=== PATIENT | female | born 1965 | race Caucasian/White ===

== ENCOUNTER 2020-07-10 15:32 | Outpatient (REF) | payer BC, SELFPAY ==
--- NOTE | 2020-07-10 15:39 | MM_ITS ---
EXAMINATION: MM SCREENING DIGITAL MAMMOGRAPHY, BILATERAL CLINICAL INFORMATION: Screening. Asymptomatic. The lifetime risk of breast cancer based on the Tyrer-Cuzick Model is 16%. COMPARISON: Mammography: 06/29/2018, 12/12/2017, 05/30/2017 TECHNIQUE: Digital mammography is performed in craniocaudal and mediolateral oblique views along with additional implant-displaced craniocaudal and implant-displaced mediolateral oblique views. Computer-aided detection (CAD) is performed for this exam. FINDINGS: There are scattered areas of fibroglandular density (ACR BI-RADS breast composition Category b). There are no significant masses, abnormal calcifications, or other abnormalities. The axilla and skin contours are unremarkable. Parenchymal pattern is similar to prior exams. There are a few punctate round calcifications mid 12:00 right breast stable from prior studies. MM/MM tomosynthesis screening BI IMPRESSION: No mammographic evidence of malignancy. ASSESSMENT: BI-RADS 2: Benign RECOMMENDATION: Routine annual mammography screening. This patient's information was entered into a reminder system with a target due date for their next mammogram.
--- NOTE | 2020-07-10 15:39 | MM_ITS ---
EXAMINATION: MM SCREENING DIGITAL MAMMOGRAPHY, BILATERAL CLINICAL INFORMATION: Screening. Asymptomatic. The lifetime risk of breast cancer based on the Tyrer-Cuzick Model is 16%. COMPARISON: Mammography: 06/29/2018, 12/12/2017, 05/30/2017 TECHNIQUE: Digital mammography is performed in craniocaudal and mediolateral oblique views along with additional implant-displaced craniocaudal and implant-displaced mediolateral oblique views. Computer-aided detection (CAD) is performed for this exam. FINDINGS: There are scattered areas of fibroglandular density (ACR BI-RADS breast composition Category b). There are no significant masses, abnormal calcifications, or other abnormalities. The axilla and skin contours are unremarkable. Parenchymal pattern is similar to prior exams. There are a few punctate round calcifications mid 12:00 right breast stable from prior studies. IMPRESSION: No mammographic evidence of malignancy. ASSESSMENT: BI-RADS 2: Benign RECOMMENDATION: Routine annual mammography screening. This patient's information was entered into a reminder system with a target due date for their next mammogram.
== END 2020-07-10 15:33 | disposition home or self-care (01) ==
LOC: HO.MAMMO 15:32
PROVIDERS: PCP Internal Medicine; Visit Provider Internal Medicine
DX: Z12.31 Encounter for screening mammogram for malignant neoplasm of breast (principal)
CPT/HCPCS: 77063; 77067

== ENCOUNTER 2021-02-15 16:23 | Outpatient (REF) | payer BC, SELFPAY ==
--- NOTE | ~2021-02-15 | XR_ITS ---
EXAMINATION: XR SINUSES CLINICAL INFORMATION: Chronic sinusitis COMPARISON: None TECHNIQUE: 4 FINDINGS: The paranasal sinuses are well aerated and clear. No opacification or air-fluid level to suggest sinusitis is seen. Bony structures are unremarkable. XR/XR sinus <3V IMPRESSION: Unremarkable examination.
== END 2021-02-15 16:24 | disposition home or self-care (01) ==
LOC: HO.XRAY 16:23
PROVIDERS: PCP Internal Medicine; Visit Provider Internal Medicine
DX: J32.9 Chronic sinusitis, unspecified (principal)
CPT/HCPCS: 70210

== ENCOUNTER → 2021-05-24 08:48 | Outpatient (BNVA) | payer BC, SELFPAY | PROVIDERS: PCP Internal Medicine; Visit Provider Nurse Practitioner ==

== ENCOUNTER 2021-05-28 10:59 | Outpatient (REF) | payer BC, SELFPAY ==
[2021-05-28 11:55] LABS: MANUAL DIFF FLAG NO
[2021-05-28 12:02] LABS: Basophils Percent Auto 0.6 % (0-2); Eosinophils Absolute Auto 0.2 X10*3/uL (0.0-0.4); Eosinophils Percent Auto 3.1 % (0-4); Hematocrit 37.4 % (37-47); Hemoglobin 12.5 g/dl (12.0-16.0); Imm Gran Abs Auto 0.01 X10*3/uL (0.00-0.03); Imm Gran Pct Auto 0.2 % (0.0-0.4); Lymphocytes Absolute Auto 1.8 X10*3/uL (1.2-4.9); Lymphocytes Percent Auto 37.5 % (20-40); Mean Corpuscular HGB Conc 33.4 g/dl (31.0-35.0); Mean Corpuscular Hemoglobin 29.3 pg (27.0-33.0); Mean Corpuscular Volume 87.6 fL (80-98); Monocytes Absolute Auto 0.4 X10*3/uL (0.1-1.2); Monocytes Percent Auto 7.4 % (2-11); Neutrophils Absolute Auto 2.5 X10*3/uL (2.0-8.3); Neutrophils Percent Auto 51.2 % (45-73); Platelet Count 222 X10*3/uL (160-400); Red Blood Count 4.27 X10*6/uL (4.20-5.50); Red Cell Distribution Width 12.2 % (11.0-16.0); White Blood Count 4.9 X10*3/uL (4.8-10.8)
[2021-05-28 12:23] LABS: Alanine Aminotransferase 13 U/L (0-31); Albumin Level 4.2 g/dL (3.5-5.0); Alkaline Phosphatase 88 U/L (39-117); Anion Gap 11 (12-20); Aspartate Amino Transferase 20 U/L (5-31); Bilirubin Total 0.5 mg/dL (0.0-1.0); Blood Urea Nitrogen 8 mg/dL (9-16); Calcium 9.4 mg/dL (8.4-10.2); Carbon Dioxide 29 mmol/L (22-29); Chloride 104 mmol/L (96-108); Cholesterol 220 mg/dL; Estimated Glomerular Filt Rate > 60; Glucose Random 94 mg/dL (60-115); HDL Cholesterol 49 mg/dL; LDL Cholesterol Calculated 158 mg/dl; Potassium 4.3 mmol/L (3.3-5.1); Sodium 140 mmol/L (135-145); Total Protein 7.3 g/dL (6.5-8.0); Triglycerides 68 mg/dL
[2021-05-28 12:30] LABS: Alanine Aminotransferase 11 U/L (0-31); Albumin Level 4.2 g/dL (3.5-5.0); Alkaline Phosphatase 88 U/L (39-117); Aspartate Amino Transferase 20 U/L (5-31); Bilirubin Direct 0.2 mg/dL (0.0-0.5); Bilirubin Total 0.5 mg/dL (0.0-1.0); Total Protein 7.3 g/dL (6.5-8.0)
[2021-05-28 12:43] LABS: Free T4 (Free Thyroxine) 0.92 ng/dL (0.71-1.85); Vitamin D 25-OH Total 22.8 ng/mL (>30)
[2021-05-28 12:49] LABS: Thyroid Stimulating Hormone 1.96 uIU/mL (0.32-4.0)
[2021-05-28 13:02] LABS: Folate 13.3 ng/mL (> or = 4.0); Vitamin B12 241 pg/mL (200-900)
== END 2021-05-28 11:00 | disposition home or self-care (01) ==
LOC: HO.LAB 10:59
PROVIDERS: Absent Provider Dermatology; PCP Internal Medicine; Referring Provider Internal Medicine; Visit Provider Nurse Practitioner
DX: L40.0 Psoriasis vulgaris (principal); D22.5 Melanocytic nevi of trunk; L81.4 Other melanin hyperpigmentation; L81.5 Leukoderma, not elsewhere classified; E78.00 Pure hypercholesterolemia, unspecified; R03.0 Elevated blood-pressure reading, without diagnosis of hypertension; L40.9 Psoriasis, unspecified; D12.6 Benign neoplasm of colon, unspecified; Z83.71 Family history of colonic polyps
CPT/HCPCS: 36415; 80053; 80061; 80076; 82248; 82306; 82607; 82746; 84439; 84443; 85025

== ENCOUNTER 2021-07-06 06:26 | Day surgery (SDC) | payer BC, SELFPAY ==
[2021-07-06] MEDS: Lactated Ringers 1,000 ML 100 ML IVCONT (06:50)
[2021-07-06 06:52] VITALS: BP 119/54; PULSE 75; RESP 16; TEMP 36.3; O2SAT 98; BMI 22.2
--- NOTE | 2021-07-06 07:18 | MHC.SHP ---
Pre-Procedural Eval Section A Date of Service: 07/06/21 The patient is an INPATIENT: No The History & Physical has been completed within 30 days and I have reviewed it.: No Section B Chief Complaint: Colon cancer screening, benign neoplasm of colon Details of Present Illness: Colon cancer screening, history of colon polyp Relevant Family History (Specify if Yes): Yes Relevant Social History: None Present Medications: see Short Stay Collaborative assessment Medical History: Significant History (Hypercholesterolemia Psoriasis) History of Previous Operations: Relevant previous surgery/procedure and date(s) (History of colonoscopy) Allergies: Allergies Allergy/AdvReac Type Severity Reaction Status Date / Time No Known Allergies Allergy Verified 07/02/21 15:27 [No Known Allergies*] Review of Systems Sugical H&P ROS: Negative: Constitution, Cardiovascular, Respiratory and Gastrointestinal Exam Surgical H&P Exam: Normal: Heart, Normal: Lungs, Normal: Extremities and Normal: Abdomen Plan Diagnosis/Plan: Unchanged I have reviewed the history and physical and performed a pertinent physical examination on my patient. No changes have occurred unless specified.
--- NOTE | 2021-07-06 07:21 | P.BOP_ITS ---
Brief Operative Note Date of Service: 07/06/21 Pre-op diagnosis: Colon cancer screening, Family history of colon cancer (Paternal Uncle in his 30's - had a colostomy) Family history of colon polyps (mom) Post-op diagnosis: other (Colon polyp, diverticulosis, hemorrhoids) Procedure: COLONOSCOPY TILL CECUM WITH BIOPSIES Consent: Indications for the procedure and potential complications of bleeding, perforation, reaction to medications and missed diagnosis were discussed with the patient and informed consent was obtained. Instrument: Olympus CF HQ 190 L variable stiffness adult colonoscope Monitoring: Vital signs and clinical assessment, intermittent blood pressure monitoring, continuous EKG monitoring, Pulse oximetry and Carbon Dioxide monitoring were done throughout the procedure. Colon withdrawl time was 12 minutes. Procedure: The patient was placed in the left lateral decubitis position and pre-procedure medications were administered. After a digital rectal examination of the ano-rectum, the video colonoscope was inserted into the rectum and advanced through the colon to the cecum. The colonoscope was slowly withdrawn in a retrograde panoramic fashion and the colon mucosa was carefully examined including a retroflexed view of the rectum. Findings and interventions are described below. Procedure Difficulty: Colon was long and tortuous and there was recurrent loop formation - no maneuvers were required Findings: Terminal Ileum: Not evaluated Cecum: Normal Ascending Colon: Normal Transverse Colon: Normal Descending Colon: Normal Sigmoid Colon: Moderate diverticulosis Rectum: A 3-4 mm diminutive appearing polyp removed with the cold biopsy Ano-rectum: Moderate internal hemorrhoids Colon preparation: Excellent Impression and Post Procedure Diagnosis: Colonoscopy Findings: One small polyp removed Moderate diverticulosis seen in the sigmoid colon Small hemorrhoids on retroflexed exam. Plan: Await pathology results Patient has an appointment on 07/20/21 in the GI Clinic with Teresa Presley NP. Repeat Colonoscopy interval based on path results - in 5 years if polyps are adenomatous and due to a hx of colon polyps. Above findings were reviewed with the patient and colon polyps and diverticulosis handouts were given in the discharge area Surgeon: Remi Cosby MD Anesthesia: MAC (Lisa Mullins CRNA) Was an Java Integration Developer used for this Procedure?: Yes Java Integration Developer: Elizabeth Brumfield Estimated blood loss (mL): 0 Pathology: other (A. rectal polyp) Condition: stable Disposition: PACU
--- NOTE | 2021-07-06 07:36 | HO.ANESPROP2 ---
HPI - Anesthesia Eval Consult details Narrative: 55 yo female patient for colonoscopy PMF Active Problems Active Problems: All Active Problems (Updated 07/02/21 @ 15:27 by Radha Davis RN) Sinusitis (Acute) Blood pressure elevated without history of HTN (Acute) Family history of polyps in the colon (Acute) Tubular adenoma of colon (Acute) Candidiasis of mouth (Acute) Psoriasis (Acute) Hypercholesterolemia (Acute) Past Medical History Medical History Arthritis Basal cell carcinoma (BCC) Candidiasis of mouth Hypercholesterolemia Mild heartburn Psoriasis Family History Family History Father Diabetes Hypertension CVD (cardiovascular disease) Mother CVD (cardiovascular disease) Hypertension Sister Melanoma Paternal Aunt Breast cancer Maternal Grandfather Bone cancer Paternal Uncle Melanoma Colon cancer Family history of problems with anesthesia: No Surgical History Surgical History H/O colonoscopy History of surgery History of Problems with Anesthesia: No Social History Social History (Updated 06/06/21 @ 15:18 by Yamilka Leon CMA) Housing: House Alcohol intake: never Patient Tobacco Use Status: Never used Tobacco e-Cigarette/Vaping Use: Never Used Second Hand Smoke Exposure: No Use of substances other than those prescribed or required for medical reasons: No Are you DNR?: No Advance Directives: No Advance Directives Information Provided: Yes Patient : No service: No Current occupational status: employed Meds Allergies Allergy/AdvReac Type Severity Reaction Status Date / Time No Known Allergies Allergy Verified 07/02/21 15:27 [No Known Allergies*] Home Medications Medication Instructions Recorded Confirmed Last Taken Type secukinumab 150 mg/mL subcutaneous mg SUBCUT Q4W 12/01/20 06/06/21 Unknown History pen injector clobetasol 0.05 % topical ointment 1 appl TOPICAL BEDTIME 12/25/20 07/02/21 Unknown History Exam Exam Date and Time: July 06, 2021 0736 Height,Weight and Vital Signs: Height 5 ft 6.5 in Weight 63.503 kg Last Vital Signs Temp 97.4 F 07/06/21 06:52 Pulse 75 07/06/21 06:52 Resp 16 07/06/21 06:52 BP 119/54 L 10/01/21 06:52 Pulse Ox 98 07/06/21 06:52 Airway Mallampati Class: I TM Dist: >3cm Neck ROM: Full Loose/Missing/Broken Teeth: No Heart: RRR Lungs: CTAB Assessment and Plan Assessment Anesthesia Assessment: Anesthesia Plan Discussed and Chart Reviewed Final Anesthetic Review Family History of Problems with Anesthesia: No History of Problems with Anesthesia: No NPO: Yes ASA Class: II Final Preanesthetic Review: No Changes in Pt Med Stat, Meds/Allgs Chart Reviewed, Consent Obtained/Reviewed and Anes Risks/Benef Reviewed Patient Risk: Low Procedure Risk: Low Assessment/Block/Sedation in SS: Assess/Block/Sedation-SS Anesthetic Plan Anesthetic Plan: MAC: Disposition: Standard PACU
--- NOTE | 2021-07-06 07:40 | P.OP_ITS ---
Operative Note Operative Note Date of Service: 07/06/21 Narrative: Pre-op diagnosis:?Colon cancer screening, Family history of colon cancer (Paternal Uncle in his 30's - had a colostomy) Family history of colon polyps (mom) Post-op diagnosis:?other (Colon polyp, diverticulosis, hemorrhoids) Procedure:? COLONOSCOPY TILL CECUM WITH BIOPSIES Consent: Indications for the procedure and potential complications of bleeding, perforation, reaction to medications and missed diagnosis were discussed with the patient and informed consent was obtained. Instrument: Olympus CF HQ 190 L variable stiffness adult colonoscope Monitoring: Vital signs and clinical assessment, intermittent blood pressure monitoring, continuous EKG monitoring, Pulse oximetry and Carbon Dioxide monitoring were done throughout the procedure. Colon withdrawl time was 12 minutes. Procedure: The patient was placed in the left lateral decubitis position and pre-procedure medications were administered. After a digital rectal examination of the ano-rectum, the video colonoscope was inserted into the rectum and advanced through the colon to the cecum. The colonoscope was slowly withdrawn in a retrograde panoramic fashion and the colon mucosa was carefully examined including a retroflexed view of the rectum. Findings and interventions are described below. Procedure Difficulty:? Colon was long and tortuous and there was recurrent loop formation - no maneuvers were required Findings: Terminal Ileum: Not evaluated Cecum:? Normal Ascending Colon:? Normal Transverse Colon:? Normal Descending Colon:? Normal Sigmoid Colon:? Moderate diverticulosis Rectum:? A 3-4 mm diminutive appearing polyp removed with the cold biopsy Ano-rectum:? Moderate internal hemorrhoids Colon preparation: Excellent ? Impression and Post Procedure Diagnosis: Colonoscopy Findings: One small polyp removed Moderate diverticulosis seen in the sigmoid colon Small hemorrhoids on retroflexed exam. Plan: Await pathology results Patient has an appointment on 07/20/21 in the GI Clinic with? Teresa Presley NP. Repeat Colonoscopy interval based on path results - in 5 years if polyps are adenomatous and due to a hx of colon polyps. Above findings were reviewed with the patient and colon polyps and diverticu losis handouts were given in the discharge area Surgeon:?Remi Cosby MD Anesthesia:?MAC (Lisa Mullins CRNA) Was an Security Solutions Engineer used for this Procedure?:?Yes Security Solutions Engineer:?Elizabeth Brumfield Estimated blood loss (mL):?0 Pathology:?other (A. rectal polyp) Condition:?stable Disposition:?PACU
[2021-07-06 08:22] VITALS: BP 90/50; PULSE 67; RESP 16; TEMP 36.3; O2SAT 99
[2021-07-06 08:37] VITALS: BP 106/62; PULSE 64; RESP 16; TEMP 36.3; O2SAT 98
== END 2021-07-06 09:37 | disposition home or self-care (01) ==
PROVIDERS: PCP Internal Medicine; Visit Provider Internal Medicine Gastroenterology
PROC: 0DJD8ZZ Inspection of Lower Intestinal Tract, Via Natural or Artificial Opening Endoscopic (ICD-10-PCS; CPT 45378; principal; 2021-07-06 07:30)
DX: Z12.11 Encounter for screening for malignant neoplasm of colon (principal); Z86.010 Personal history of colon polyps; Z83.71 Family history of colonic polyps; K62.1 Rectal polyp; K57.30 Diverticulosis of large intestine without perforation or abscess without bleeding; K64.8 Other hemorrhoids; L40.9 Psoriasis, unspecified; E78.00 Pure hypercholesterolemia, unspecified; Z79.899 Other long term (current) drug therapy
CPT/HCPCS: 45380; 88305

== ENCOUNTER → 2021-07-20 09:03 | Outpatient (BNVA) | payer BC, SELFPAY | PROVIDERS: PCP Internal Medicine; Referring Provider Internal Medicine; Visit Provider Nurse Practitioner ==

== ENCOUNTER 2021-08-07 14:48 | Outpatient (REF) | payer BC, SELFPAY ==
[2021-08-09 19:31] LABS: TS Negative Control Passed; TS Panel A 0; TS Panel B 0; TS Positive Control Passed; TSpotTB Negative (Negative)
== END 2021-08-07 14:49 | disposition home or self-care (01) ==
LOC: HO.LAB 14:48
PROVIDERS: PCP Internal Medicine; Visit Provider Dermatology
DX: Z11.1 Encounter for screening for respiratory tuberculosis (principal); D22.5 Melanocytic nevi of trunk; L81.4 Other melanin hyperpigmentation; L81.5 Leukoderma, not elsewhere classified; L40.0 Psoriasis vulgaris
CPT/HCPCS: 36415; 86481

== ENCOUNTER 2021-10-01 11:34 | Outpatient (REF) | payer BC, SELFPAY | END 2021-10-01 11:35 | disposition home or self-care (01) | LOC: HO.LAB 11:34 | PROVIDERS: Visit Provider Internal Medicine | DX: Z20.822 Contact with and (suspected) exposure to COVID-19 (principal) | CPT/HCPCS: 36415; 87635; C9803; U0003; U0005 ==

== ENCOUNTER 2021-12-20 16:07 | Outpatient (REF) | payer BC, SELFPAY ==
--- NOTE | ~2021-12-20 | MM_ITS ---
EXAMINATION: MM SCREENING DIGITAL BREAST TOMOSYNTHESIS, BILATERAL CLINICAL INFORMATION: Screening. Asymptomatic. The lifetime risk of breast cancer based on the Tyrer-Cuzick Model is 15%. COMPARISON: Mammography: 07/10/2020, 07/05/2019, 06/29/2018 TECHNIQUE: Digital breast tomosynthesis is performed in both the craniocaudal and mediolateral oblique views along with computer-aided detection (CAD). Synthesized 2D images are generated from the tomosynthesis. FINDINGS: There are scattered areas of fibroglandular density (ACR BI-RADS breast composition Category b). There are no significant masses, abnormal calcifications, or other abnormalities. Parenchymal pattern is similar to prior studies. There is no developing density or architectural abnormality. The axilla and skin contours are unremarkable. No significant changes. MM/MM tomosynthesis screening BI IMPRESSION: No mammographic evidence of malignancy. ASSESSMENT: BI-RADS 1: Negative RECOMMENDATION: Routine annual mammography screening. This patient's information was entered into a reminder system with a target due date for their next mammogram.
== END 2021-12-20 16:08 | disposition home or self-care (01) ==
LOC: HO.MAMMO 16:07
PROVIDERS: Visit Provider Internal Medicine
DX: Z12.31 Encounter for screening mammogram for malignant neoplasm of breast (principal)
CPT/HCPCS: 77063; 77067

== ENCOUNTER 2022-05-24 08:23 | Outpatient (REF) | payer BC, SELFPAY ==
[2022-05-24 08:48] LABS: MANUAL DIFF FLAG NO
[2022-05-24 10:02] LABS: Alanine Aminotransferase < 6 U/L (0-31); Alkaline Phosphatase 79 U/L (39-117); Anion Gap 14 (12-20); Aspartate Amino Transferase 17 U/L (5-31); Bilirubin Total 0.5 mg/dL (0.0-1.0); Blood Urea Nitrogen 11 mg/dL (9-16); Calcium 9.4 mg/dL (8.4-10.2); Carbon Dioxide 27 mmol/L (22-29); Chloride 104 mmol/L (96-108); Cholesterol 248 mg/dL; Estimated Glomerular Filt Rate > 60; Glucose Random 96 mg/dL (60-115); HDL Cholesterol 57 mg/dL; LDL Cholesterol Calculated 179 mg/dl; Potassium 4.9 mmol/L (3.3-5.1); Sodium 140 mmol/L (135-145); Total Protein 6.8 g/dL (6.5-8.0); Triglycerides 64 mg/dL
[2022-05-24 10:10] LABS: Free T4 (Free Thyroxine) 0.85 ng/dL (0.71-1.85); Thyroid Stimulating Hormone 1.76 uIU/mL (0.32-4.0); Vitamin D 25-OH Total 23.6 ng/mL (>30)
[2022-05-24 10:20] LABS: Folate 10.4 ng/mL (> or = 4.0); Vitamin B12 855 pg/mL (200-900)
[2022-05-24 11:09] LABS: Basophils Percent Auto 0.7 % (0-2); Eosinophils Absolute Auto 0.1 X10*3/uL (0.0-0.4); Eosinophils Percent Auto 2.1 % (0-4); Hemoglobin 12.1 g/dl (12.0-16.0); Imm Gran Abs Auto 0.01 X10*3/uL (0.00-0.03); Imm Gran Pct Auto 0.2 % (0.0-0.4); Lymphocytes Absolute Auto 1.6 X10*3/uL (1.2-4.9); Lymphocytes Percent Auto 36.4 % (20-40); Mean Corpuscular HGB Conc 33.6 g/dl (31.0-35.0); Mean Corpuscular Hemoglobin 29.5 pg (27.0-33.0); Mean Corpuscular Volume 87.8 fL (80.0-98.0); Mean Platelet Volume 10.5 fL (9.4-12.3); Monocytes Absolute Auto 0.5 X10*3/uL (0.1-1.2); Monocytes Percent Auto 10.5 % (2-11); Neutrophils Absolute Auto 2.2 x10*3/uL (2.0-8.3); Neutrophils Percent Auto 50.1 % (45-73); Platelet Count 210 X10*3/uL (160-400); Red Cell Distribution Width 12.2 % (11.0-16.0); White Blood Count 4.4 X10*3/uL (4.8-10.8)
== END 2022-05-24 08:24 | disposition home or self-care (01) ==
LOC: HO.LAB 08:23
PROVIDERS: PCP Internal Medicine; Visit Provider Internal Medicine
DX: E78.00 Pure hypercholesterolemia, unspecified (principal)
CPT/HCPCS: 36415; 80053; 80061; 82306; 82607; 82746; 84439; 84443; 85025

== ENCOUNTER 2023-03-27 10:14 | Outpatient (REF) | payer BC, SELFPAY ==
--- NOTE | ~2023-03-27 | MM_ITS ---
EXAMINATION: MM SCREENING DIGITAL BREAST TOMOSYNTHESIS, BILATERAL CLINICAL INFORMATION: Screening. Asymptomatic. The lifetime risk of breast cancer based on the Tyrer-Cuzick Model is 15%. COMPARISON: Mammography: 12/20/2021, 07/10/2020, 07/05/2019 TECHNIQUE: Digital breast tomosynthesis is performed in both the craniocaudal and mediolateral oblique views along with computer-aided detection (CAD). Synthesized 2D images are generated from the tomosynthesis. FINDINGS: There are scattered areas of fibroglandular density (ACR BI-RADS breast composition Category b). There are no significant masses, abnormal calcifications, or other abnormalities. No architectural abnormality or developing density or significant change from prior studies. The axilla and skin contours are unremarkable. MM/MM tomosynthesis screening BI IMPRESSION: No mammographic evidence of malignancy. ASSESSMENT: BI-RADS 1: Negative RECOMMENDATION: Routine annual mammography screening. This patient's information was entered into a reminder system with a target due date for their next mammogram.
== END 2023-03-27 10:15 | disposition home or self-care (01) ==
LOC: HO.MAMMO 10:14
PROVIDERS: Visit Provider Internal Medicine
DX: Z12.31 Encounter for screening mammogram for malignant neoplasm of breast (principal)
CPT/HCPCS: 77063; 77067

== ENCOUNTER 2023-05-27 09:49 | Outpatient (REF) | payer BC, SELFPAY ==
[2023-05-27 10:03] LABS: MANUAL DIFF FLAG NO
[2023-05-27 10:43] LABS: Basophils Percent Auto 0.5 % (0-2); Eosinophils Absolute Auto 0.1 X10*3/uL (0.0-0.4); Eosinophils Percent Auto 1.4 % (0-4); Hematocrit 38.4 % (37.0-47.0); Hemoglobin 12.5 g/dl (12.0-16.0); Imm Gran Abs Auto 0.02 X10*3/uL (0.00-0.03); Imm Gran Pct Auto 0.4 % (0.0-0.4); Lymphocytes Percent Auto 34.3 % (20-40); Mean Corpuscular HGB Conc 32.6 g/dl (31.0-35.0); Mean Corpuscular Volume 89.1 fL (80.0-98.0); Mean Platelet Volume 10.2 fL (9.4-12.3); Monocytes Absolute Auto 0.4 X10*3/uL (0.1-1.2); Neutrophils Absolute Auto 3.2 x10*3/uL (2.0-8.3); Neutrophils Percent Auto 56.4 % (45-73); Platelet Count 203 X10*3/uL (160-400); Red Blood Count 4.31 X10*6/uL (4.20-5.50); Red Cell Distribution Width 12.2 % (11.0-16.0); White Blood Count 5.7 X10*3/uL (4.8-10.8)
[2023-05-27 11:28] LABS: Alanine Aminotransferase 10 U/L (0-31); Albumin Level 4.1 g/dL (3.5-5.0); Alkaline Phosphatase 76 U/L (39-117); Anion Gap 11 (12-20); Aspartate Amino Transferase 19 U/L (5-31); Bilirubin Total 0.6 mg/dL (0.0-1.0); Blood Urea Nitrogen 9 mg/dL (9-16); Calcium 9.9 mg/dL (8.4-10.2); Carbon Dioxide 29 mmol/L (22-29); Chloride 105 mmol/L (96-108); Cholesterol 248 mg/dL (<200); Estimated Glomerular Filt Rate > 60; Glucose Random 93 mg/dL (60-115); HDL Cholesterol 60 mg/dL (>40); LDL Cholesterol Calculated 174 mg/dL (<100); Potassium 4.6 mmol/L (3.3-5.1); Sodium 140 mmol/L (135-145); Total Protein 7.4 g/dL (6.5-8.0); Triglycerides 71 mg/dL (<150)
[2023-05-27 11:47] LABS: Free T4 (Free Thyroxine) 0.88 ng/dL (0.71-1.85); Thyroid Stimulating Hormone 2.03 uIU/mL (0.32-4.0); Vitamin D 25-OH Total 22.4 ng/mL (>30)
[2023-05-27 11:52] LABS: Folate 10.4 ng/mL (> or = 4.0); Vitamin B12 989 pg/mL (200-900)
== END 2023-05-27 09:50 | disposition home or self-care (01) ==
LOC: HO.LAB 09:49
PROVIDERS: PCP Internal Medicine; Visit Provider Internal Medicine
DX: E78.00 Pure hypercholesterolemia, unspecified (principal); E55.9 Vitamin D deficiency, unspecified
CPT/HCPCS: 36415; 80053; 80061; 82306; 82607; 82746; 84439; 84443; 85025

== ENCOUNTER 2023-06-02 15:49 | Outpatient (AMB) | payer BC, SELFPAY ==
--- NOTE | 2023-06-02 16:01 | MHC.PC.OV ---
Vital Signs 06/02/23 16:02 Height 5 ft 5.5 in Weight 138 lb BMI 22.6 BP 110/68 Blood Pressure Location Lt brachial Position Sitting Pulse 68 Pulse Source Pulse Oximeter Pulse Oximetry (%) 97 Oxygen Delivery Method Room Air Intake Visit Reasons: 3 MONTH F/U Allergies No Known Allergies [No Known Allergies*] Allergy (Verified 06/02/23 16:02) Medication List - Last Reconciled 06/02/23 by Calvin Bennett MD calcipotriene 0.005% 1 appl topical BID clobetasol 0.05% 1 appl topical BEDTIME mecobalamin (vitamin B12) 1,000 mcg PO DAILY nystatin 5 mL PO TID 7 days risankizumab-rzaa (Skyrizi) mg subcut simvastatin 5 mg PO BEDTIME Tobacco use date assessed: 12/31/22 Dental Screening Dental Screen Date: 06/02/23 Did you have a dental visit in the last 12 months?: Yes Did you have a dental problem in the last 6 months where you did not have access to dental care?: No Was dental information given to patient?: Patient has dentist HPI 3 MONTH F/U HPI Details 57-year-old female with psoriasis hypercholesterolemia vitamin-D deficiency last seen in December 2022 for physical exam. Blood work was requested. Mammogram is up-to-date colonoscopy is up-to-date July 2021 patient is here for follow-up [facility] Medical History (Updated 12/31/22 @ 17:05 by Calvin Bennett MD) Arthritis Basal cell carcinoma (BCC) Candidiasis of mouth Family history of polyps in the colon Hypercholesterolemia Mild heartburn Psoriasis Surgical History H/O colonoscopy History of surgery Family History (Updated 06/02/23 @ 16:04 by Betzy Fraser CMA) Father Diabetes Hypertension CVD (cardiovascular disease) Mother CVD (cardiovascular disease) Hypertension Sister Melanoma Paternal Aunt Breast cancer Maternal Grandfather Bone cancer Paternal Uncle Melanoma Colon cancer Paternal Grandmother No problems noted. Paternal Grandfather CVD (cardiovascular disease) Social History Housing: House Alcohol intake: never Patient Tobacco Use Status: Never used Tobacco e-Cigarette/Vaping Use: Never Used Second Hand Smoke Exposure: No service: No Current occupational status: employed Cognitive needs: No Hearing needs: No Vision needs: No Questionnaire PHQ-9 Over the last 2 weeks, how often have you been bothered by any of the following problems? 1. Little interest or pleasure in doing things: not at all 2. Feeling down, depressed, or hopeless: not at all 3. Trouble falling or staying asleep, or sleeping too much: not at all 4. Feeling tired or having little energy: not at all 5. Poor appetite or overeating: not at all 6. Feeling bad about yourself - or that you are a failure or have let yourself or your family down: not at all 7. Trouble concentrating on things, such as reading the newspaper or watching television: not at all 8. Moving or speaking so slowly that other people could have noticed. Or the opposite - being so fidgety or restless that you have been moving around a lot more than usual: not at all 9. Thoughts that you would be better off or of hurting yourself in some way: not at all Total score: 0 Depression Screening Interpretation: Negative Source: Developed by Drs. Benigno See, Paige Prescott, Andera Roa and colleagues, with an educational pavan from [employer]. Thrive Questionnaire Date Thrive assessed: 12/31/22 AUDIT C Alcohol Use Questionnaire (AUDIT-C) 1. How often do you have a drink containing alcohol?: Never 2. How many drinks containing alcohol do you have on a typical day when you are drinking?: 1 or 2 (0) 3. How often do you have six or more drinks on one occasion?: Never Total Score: 0 FLORINDA-7 AMB Questionnaire FLORINDA-7 Date FLORINDA - 7 assessed: 12/31/22 Source: Developed by Drs. Benigno See, Paige Prescott, Andrea Roa and colleagues, with an educational pavan from [employer]. Physical exam (Primary Care) Vital Signs: Last Vital Signs Pulse 68 06/02/23 16:02 BP 110/68 06/02/23 16:02 Pulse Ox 97 06/02/23 16:02 Oxygen Delivery Method Room Air 06/02/23 16:02 BMI result Body Mass Index 22.6 Tobacco/Smoking Status: Tobacco use Status Tobacco use date assessed 12/31/22 06/02/23 16:07 Patient Tobacco Use Status Never used Tobacco 06/02/23 16:07 e-Cigarette/Vaping Use Never Used 06/02/23 16:07 PHQ-9: PHQ-9 Score PHQ-9: Total score 0 06/02/23 16:07 Depression Screening Interpretation: Negative Thrive Assessment: Date of Thrive Assessment Date Thrive assessed 12/31/22 06/02/23 16:07 Const General: alert; No acute distress Eyes Conjunctivae: conjunctivae normal Resp Auscultation: clear to auscultation bilaterally Cardio Rate: regular rate Rhythm: regular rhythm GI Inspection: Yes normal to inspection Extrem General: Yes normal to inspection and No edema Assessment and Plan Assessment & Plan (1) Psoriasis: Comment: Dr. Curry Code(s): L40.9 - Psoriasis, unspecified Plan: Patient follows up with Dermatology had a recent biopsy also. Was told benign (2) Hypercholesterolemia: Comment: January 2022 CT angiogram nonobstructive coronary artery disease Code(s): E78.00 - Pure hypercholesterolemia, unspecified Plan: Avoid fried foods, chicken skin, eggs, butter margarine, pastries and meat. Be it pork or beef they have a lot of cholesterol LDL goal of less than 130 and triglyceride of less than 150. Will start on simvastatin 5 mg once a day (3) Vitamin D deficiency: Code(s): E55.9 - Vitamin D deficiency, unspecified Plan: Vitamin-D 7497-8910 units once a day Orders: Orders Comprehensive Met. Panel 3 Months E78.00 - Pure hypercholesterolemia, unspecified Lipid Panel 3 Months E78.00 - Pure hypercholesterolemia, unspecified Medications: New simvastatin 5 mg PO BEDTIME 30 tabs 3RF E78.00 - Pure hypercholesterolemia, unspecified Refilled nystatin swish and swallow 5 mL PO TID 105 mL 1RF 7 days B37.0 - Candidal stomatitis Coding Level of Care Code Est Pt Level 4 (51775) Diagnoses Psoriasis L40.9 Hypercholesterolemia E78.00 Vitamin D deficiency E55.9 Additional Codes PHQ-9 - 21743 - PHQ-9 Billing: Y ([id number])
[2023-06-02 16:02] VITALS: BP 110/68; PULSE 68; O2SAT 97; BMI 22.6
== END 2023-06-02 16:39 | disposition home or self-care (01) ==
PROVIDERS: PCP Internal Medicine; Visit Provider Internal Medicine
DX: L40.9 Psoriasis, unspecified (principal); E78.00 Pure hypercholesterolemia, unspecified; E55.9 Vitamin D deficiency, unspecified
CPT/HCPCS: 99214

== ENCOUNTER 2023-09-04 15:46 | Outpatient (AMB) | payer BC, SELFPAY ==
[2023-09-04 15:49] VITALS: BP 132/90; PULSE 78; O2SAT 98; BMI 22.6
--- NOTE | 2023-09-04 15:49 | MHC.PC.OV ---
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 Patient's mammogram is up-to-date colonoscopy done July 2021. With the psoriasis patient follows up with the Dermatology placed on Skyrizi 150 mg subcutaneously every 12 weeks. L shoulder pain- after dog pulled deny bruise or swelling hard time elevating the arm and swinging to the back.. Patient knows to get the blood work done in the lab [facility] Medical History (Updated 09/04/23 @ 16:28 by Calvin Bennett MD) Basal cell carcinoma (BCC) Mild heartburn Arthritis Candidiasis of mouth Family history of polyps in the colon Hypercholesterolemia Psoriasis Surgical History H/O colonoscopy History of surgery Family History Father Diabetes Hypertension CVD (cardiovascular disease) Mother CVD (cardiovascular disease) Hypertension Sister Melanoma Paternal Aunt Breast cancer Maternal Grandfather Bone cancer Paternal Uncle Melanoma Colon cancer Paternal Grandmother No problems noted. Paternal Grandfather CVD (cardiovascular disease) Social History Housing: House Alcohol intake: never Patient Tobacco Use Status: Never used Tobacco e-Cigarette/Vaping Use: Never Used Second Hand Smoke Exposure: No service: No Current occupational status: employed Cognitive needs: No Hearing needs: No Vision needs: No Questionnaire Thrive Questionnaire Date Thrive assessed: 12/31/22 FLORINDA-7 AMB Questionnaire FLORINDA-7 Date FLORINDA - 7 assessed: 12/31/22 Source: Developed by Drs. Benigno See, Paige Prescott, Andrea Roa and colleagues, with an educational pavan from [employer]. Physical exam (Primary Care) Vital Signs: Last Vital Signs Pulse 78 09/04/23 15:49 BP 132/90 H 09/04/23 15:49 Pulse Ox 98 09/04/23 15:49 Oxygen Delivery Method Room Air 09/04/23 15:49 BMI result Body Mass Index 22.6 Tobacco/Smoking Status: Tobacco use Status Tobacco use date assessed 12/31/22 09/04/23 15:51 Patient Tobacco Use Status Never used Tobacco 09/04/23 15:51 e-Cigarette/Vaping Use Never Used 09/04/23 15:51 Thrive Assessment: Date of Thrive Assessment Date Thrive assessed 12/31/22 09/04/23 15:51 Const General: alert; No acute distress Eyes Conjunctivae: conjunctivae normal Resp Auscultation: clear to auscultation bilaterally Cardio Rate: regular rate Rhythm: regular rhythm GI Inspection: Yes normal to inspection Extrem Other: Patient has a hard time screening the arm to the back but can elevate up to 110 degrees there is pain in side but deny on posterior lateral and anterior. Assessment and Plan Assessment & Plan (1) Hypercholesterolemia: Comment: January 2022 CT angiogram nonobstructive coronary artery disease Code(s): E78.00 - Pure hypercholesterolemia, unspecified Plan: Avoid fried foods, chicken skin, eggs, butter margarine, pastries and meat. Be it pork or beef they have a lot of cholesterol LDL goal of less than 130 and triglyceride of less than 150. Has been placed on simvastatin 5 mg once a day. Reminded patient about the blood work (2) Vitamin D deficiency: Code(s): E55.9 - Vitamin D deficiency, unspecified Plan: Vitamin-D deficiency to take 9117-8474 units once a day (3) Psoriasis: Comment: Dr. Curry Code(s): L40.9 - Psoriasis, unspecified Plan: Patient follows up with Dermatology and on Skyrizi (4) Shoulder pain, left: Code(s): M25.512 - Pain in left shoulder Orders: Orders XR shoulder LT min 2V Today M25.512 - Pain in left shoulder Referrals Orthopedics Referral M25.512 - Pain in left shoulder Coding Level of Care Code Est Pt Level 4 (59759) Diagnoses Hypercholesterolemia E78.00 Vitamin D deficiency E55.9 Psoriasis L40.9 Shoulder pain, left M25.512
== END 2023-09-04 16:32 | disposition home or self-care (01) ==
PROVIDERS: PCP Internal Medicine; Visit Provider Internal Medicine
DX: E78.00 Pure hypercholesterolemia, unspecified (principal); E55.9 Vitamin D deficiency, unspecified; L40.9 Psoriasis, unspecified; M25.512 Pain in left shoulder
CPT/HCPCS: 99214

== ENCOUNTER 2023-09-24 15:02 | Outpatient (REF) | payer BC, SELFPAY ==
--- NOTE | ~2023-09-24 | XR_ITS ---
EXAMINATION: XR SHOULDER, LEFT CLINICAL INFORMATION: Pain in left shoulder COMPARISON: None available. TECHNIQUE: AP external rotation, Grashey, scapular Y, and axillary views of the left shoulder. FINDINGS: The bones and soft tissues are normal. No fracture. Glenohumeral and acromioclavicular alignment is anatomic with normal joint space. No abnormal soft tissue calcifications. XR/XR shoulder LT min 2V IMPRESSION: Normal left shoulder.
== END 2023-09-24 15:03 | disposition home or self-care (01) ==
LOC: HO.XRAY 15:02
PROVIDERS: PCP Internal Medicine; Visit Provider Internal Medicine
DX: M25.512 Pain in left shoulder (principal)
CPT/HCPCS: 73030

== ENCOUNTER 2023-09-30 09:18 | Outpatient (REF) | payer BC, SELFPAY | END 2023-09-30 09:19 | disposition home or self-care (01) | LOC: HO.HOSX 09:18 | PROVIDERS: Visit Provider Orthopaedic Surgery | DX: Z13.89 Encounter for screening for other disorder (principal) ==

== ENCOUNTER 2023-09-30 10:41 | Outpatient (AMB) | payer BC, SELFPAY ==
[2023-09-30 10:43] VITALS: BMI 21.8
--- NOTE | 2023-09-30 10:43 | MHC.OFFVIS ---
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 She explains that over the summer while walking her dogs they pulled on the leash and she has had increasing pain since. Takes Advil for pain, which helps temporarily. The patient states that in spite of doing physical therapy exercises she has lost range of motion in her shoulder. She reports difficulty lifting her left hand above shoulder height. Allergies No Known Allergies [No Known Allergies*] Allergy (Verified 09/30/23 10:45) Medication List - Last Reconciled 09/30/23 by Alexx Frazier MD calcipotriene 0.005% 1 appl topical BID clobetasol 0.05% 1 appl topical BEDTIME mecobalamin (vitamin B12) 1,000 mcg PO DAILY risankizumab-rzaa (Skyrizi) mg subcut simvastatin 5 mg PO BEDTIME PFSH Medical History Basal cell carcinoma (BCC) Mild heartburn Arthritis Candidiasis of mouth Family history of polyps in the colon Hypercholesterolemia Psoriasis Surgical History H/O colonoscopy History of surgery Family History Father Diabetes Hypertension CVD (cardiovascular disease) Mother CVD (cardiovascular disease) Hypertension Sister Melanoma Paternal Aunt Breast cancer Maternal Grandfather Bone cancer Paternal Uncle Melanoma Colon cancer Paternal Grandmother No problems noted. Paternal Grandfather CVD (cardiovascular disease) Social History (Updated 09/30/23 @ 10:46 by Geovanna Parekh CMA) Housing: House Alcohol intake: never Patient Tobacco Use Status: Never used Tobacco e-Cigarette/Vaping Use: Never Used Second Hand Smoke Exposure: No service: No Current occupational status: employed Current occupation: Occupational Therapy Cognitive needs: No Hearing needs: No Vision needs: No Physical Exam Vital Signs: BMI result Body Mass Index 21.8 Const Other: Well-nourished well-developed very friendly female awake alert and oriented x3 in no acute distress Extrem Other: Bilateral upper extremity examination shows good capillary refill, no skin lesions noted, normal sensation light touch Left shoulder examination shows decreased range of motion when compared to her right shoulder, 4/5 strength with supraspinatus testing, positive impingement signs, tenderness over her acromioclavicular joint, no instability Results Reviewed Results Reviewed: X-rays of the patient's left shoulder show severe acromioclavicular joint narrowing, a type 3 acromion, no acute bony abnormalities Assessment & Plan Assessment & Plan (1) Shoulder pain, left: Code(s): M25.512 - Pain in left shoulder Plan: Ms. Matt presents with progressively worsening left shoulder pain and weakness possibly due to a full-thickness rotator cuff tear. Thus, I will send the patient for an MRI of her left shoulder for further evaluation. If she does have a full-thickness tear I will recommend surgical repair to optimize her future functional level. I will see her back once the MRI is completed to discuss the findings and treatment options. Feel free to call me at any time should questions regarding her orthopedic management arise. I spent 20 minutes in reviewing the patient's records and imaging studies, seeing the patient and documenting in the medical record. Orders: Orders MR shoulder LT wo con Today M25.512 - Pain in left shoulder Coding Level of Care Code New Pt Level 2 (22579) Diagnoses Shoulder pain, left M25.512
== END 2023-09-30 10:58 | disposition home or self-care (01) ==
PROVIDERS: PCP Internal Medicine; Visit Provider Orthopaedic Surgery
DX: M25.512 Pain in left shoulder (principal)
CPT/HCPCS: 99202

== ENCOUNTER 2023-10-16 20:00 | Outpatient (REF) | payer BC, SELFPAY ==
--- NOTE | ~2023-10-16 | MR_ITS ---
EXAMINATION: MR SHOULDER WITHOUT CONTRAST, LEFT CLINICAL INFORMATION: Left shoulder pain COMPARISON: Radiographs 09/24/2023 TECHNIQUE: MRI of the shoulder without contrast was performed on a high-field scanner. FINDINGS: ROTATOR CUFF: Intact. No muscle atrophy or fatty infiltration. BICEPS: Normal. CORACOACROMIAL ARCH: The undersurface of the acromion is curved with no subacromial spur. Minimal acromioclavicular osteoarthritis. LABRUM/CAPSULE: Normal. GLENOHUMERAL JOINT/MARROW: No joint effusion. No focal articular cartilage defect. MR/MR shoulder LT wo con IMPRESSION: 1. No rotator cuff tear. 2. Minimal acromioclavicular osteoarthritis.
== END 2023-10-16 20:01 | disposition home or self-care (01) ==
LOC: HO.MRI 20:00
PROVIDERS: PCP Internal Medicine; Visit Provider Orthopaedic Surgery
DX: M25.512 Pain in left shoulder (principal)
CPT/HCPCS: 73221

== ENCOUNTER 2023-10-28 07:42 | Outpatient (AMB) | payer BC, SELFPAY ==
--- NOTE | 2023-10-28 07:47 | A.OFFVIS_ITS ---
Intake Intake Visit Reasons: OV- MRI follow up Intake Note: Deandra is a 58 year old female who presents for a MRI review of her Left shoulder. The patient states that she aggravated her left shoulder this summer while walking her dogs. She has recently been modifying her activities which has improved her discomfort somewhat. She has also been doing stretching exercises which has improved her range of motion. Allergies No Known Allergies [No Known Allergies*] Allergy (Verified 10/28/23 07:48) Medication List - Last Reconciled 10/28/23 by Alexx Frazier MD calcipotriene 0.005% 1 appl topical BID clobetasol 0.05% 1 appl topical BEDTIME mecobalamin (vitamin B12) 1,000 mcg PO DAILY risankizumab-rzaa (Skyrizi) mg subcut simvastatin 5 mg PO BEDTIME PFSH Medical History Basal cell carcinoma (BCC) Mild heartburn Arthritis Candidiasis of mouth Family history of polyps in the colon Hypercholesterolemia Psoriasis Surgical History H/O colonoscopy History of surgery Family History Father Diabetes Hypertension CVD (cardiovascular disease) Mother CVD (cardiovascular disease) Hypertension Sister Melanoma Paternal Aunt Breast cancer Maternal Grandfather Bone cancer Paternal Uncle Melanoma Colon cancer Paternal Grandmother No problems noted. Paternal Grandfather CVD (cardiovascular disease) Social History (Updated 09/30/23 @ 10:46 by Geovanna Parekh [facility]) Housing: House Alcohol intake: never Patient Tobacco Use Status: Never used Tobacco e-Cigarette/Vaping Use: Never Used Second Hand Smoke Exposure: No service: No Current occupational status: employed Current occupation: Occupational Therapy Cognitive needs: No Hearing needs: No Vision needs: No Physical Exam Extrem Other: Left shoulder examination shows slightly decreased range of motion when compared to her right shoulder, mild discomfort with range of motion Results Reviewed Results Reviewed: MRI of the patient's left shoulder shows a type 2 acromion, signal change within the supraspinatus tendon due to rotator cuff tendinosis, no rotator cuff tearing Assessment & Plan Assessment & Plan (1) Shoulder pain, left: Code(s): M25.512 - Pain in left shoulder Plan Ms. Matt presents with intermittent left shoulder pain due to impingement syndrome. I had a lengthy discussion with the patient regarding the treatment options. At this point the patient's shoulder discomfort is tolerable to her. We will hold off on a cortisone injection. She will continue with her activity modifications. She will follow up with me on an as-needed basis should her symptoms worsen in any way. Feel free to call me at any time should questions regarding her orthopedic management arise. I spent 12 minutes in reviewing the patient's records and imaging studies, seeing the patient and documenting in the medical record. Coding Level of Care Code Est Pt Level 2 (01457) Diagnoses Shoulder pain, left M25.512
== END 2023-10-28 07:57 | disposition home or self-care (01) ==
PROVIDERS: PCP Internal Medicine; Visit Provider Orthopaedic Surgery
DX: M75.42 Impingement syndrome of left shoulder (principal)
CPT/HCPCS: 99213

== ENCOUNTER → 2023-10-28 07:42 | Outpatient (BNVA) | payer BC, SELFPAY | PROVIDERS: PCP Internal Medicine; Visit Provider Orthopaedic Surgery ==

== ENCOUNTER 2023-12-27 08:55 | Outpatient (REF) | payer BC, SELFPAY ==
[2023-12-27 10:10] LABS: Alanine Aminotransferase 9 U/L (0-31); Alkaline Phosphatase 79 U/L (39-117); Anion Gap 11 (12-20); Aspartate Amino Transferase 17 U/L (5-31); Bilirubin Total 0.5 mg/dL (0.0-1.0); Blood Urea Nitrogen 9 mg/dL (9-16); Calcium 9.4 mg/dL (8.4-10.2); Carbon Dioxide 29 mmol/L (22-29); Chloride 107 mmol/L (96-108); Cholesterol 194 mg/dL (<200); Estimated Glomerular Filt Rate > 60; Glucose Random 100 mg/dL (60-115); HDL Cholesterol 62 mg/dL (>40); LDL Cholesterol Calculated 124 mg/dL (<100); Potassium 4.5 mmol/L (3.3-5.1); Sodium 142 mmol/L (135-145); Triglycerides 42 mg/dL (<150)
== END 2023-12-27 08:56 | disposition home or self-care (01) ==
LOC: HO.LAB 08:55
PROVIDERS: PCP Internal Medicine; Visit Provider Internal Medicine
DX: E78.00 Pure hypercholesterolemia, unspecified (principal)
CPT/HCPCS: 36415; 80053; 80061

== ENCOUNTER 2024-01-02 16:08 | Outpatient (AMB) | payer BC, SELFPAY ==
[2024-01-02 16:10] VITALS: BP 130/62; PULSE 70; O2SAT 97; BMI 22.6
--- NOTE | 2024-01-02 16:10 | A.OFFPC_ITS ---
Vital Signs 01/02/24 16:10 Height 5 ft 5.5 in Weight 138 lb 0.8 oz BMI 22.6 BP 130/62 Blood Pressure Location Lt brachial Position Sitting Pulse 70 Pulse Source Pulse Oximeter Pulse Oximetry (%) 97 Oxygen Delivery Method Room Air Intake Visit Reasons: pe Intake Note: Patient is here today for a physical. 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 Allergies No Known Allergies [No Known Allergies*] Allergy (Verified 01/02/24 16:14) Medication List - Last Reconciled 01/02/24 by Calvin Bennett MD calcipotriene 0.005% 1 appl topical BID cholecalciferol (vitamin D3) 50 mcg PO DAILY clobetasol 0.05% 1 appl topical BEDTIME risankizumab-rzaa (Skyrizi) mg subcut simvastatin 5 mg PO BEDTIME Tobacco use date assessed: 01/02/24 Dental Screening Dental Screen Date: 01/02/24 Did you have a dental visit in the last 12 months?: Yes Did you have a dental problem in the last 6 months where you did not have access to dental care?: No Was dental information given to patient?: Patient has dentist HPI pe HPI Details 58-year-old female with a history of hyp ercholesterolemia psoriasis la st seen in August 2023 patient is here for physical exam. Mammogram is up-to-date and colonoscopy July 2021 due for 2 year. Patient had shoulder pains left and was referred to orthopedics had an MRI done impression of no rotator cuff tear minimal acromioclavicular osteoarthritis. presently will continue with activity modification.. in the last 2 years 4 x near syncope. occured while driving. 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 [facility] Medical History Basal cell carcinoma (BCC) Mild heartburn Arthritis Candidiasis of mouth Family history of polyps in the colon Hypercholesterolemia Psoriasis Surgical History H/O colonoscopy History of surgery Family History Father Diabetes Hypertension CVD (cardiovascular disease) Mother CVD (cardiovascular disease) Hypertension Sister Melanoma Paternal Aunt Breast cancer Maternal Grandfather Bone cancer Paternal Uncle Melanoma Colon cancer Paternal Grandmother No problems noted. Paternal Grandfather CVD (cardiovascular disease) Social History (Updated 09/30/23 @ 10:46 by Geovanna Parekh [facility]) Housing: House Alcohol intake: never Patient Tobacco Use Status: Never used Tobacco e-Cigarette/Vaping Use: Never Used Second Hand Smoke Exposure: No service: No Current occupational status: employed Current occupation: Occupational Therapy Cognitive needs: No Hearing needs: No Vision needs: No Questionnaire Thrive Questionnaire Date Thrive assessed: 01/02/24 I am a: Patient What is your living situation today?: I have a steady place to live Within the past 12 months, did the food you bought not last and you didn't have the money to get more?: Never true Within the past 12 months, did you worry whether your food would run out before you got money to buy more?: Never true Do you have trouble paying for medicines?: No Do you have trouble getting transportation to medical appointments?: No Do you have trouble paying your heating and electricity bill?: No Do you have trouble taking care of your child, family member or friend?: No Do you have trouble with day-to-day activities such as bathing, preparing meals, shopping, managing finances, etc.?: No Are you currently unemployed and looking for a job?: No Are you interested in more education?: No Please select the resources that you would like help with: None Currently or been in a relationship where the following occur: no concerns reported THRIVE Score: 0 AUDIT C Alcohol Use Questionnaire (AUDIT-C) 1. How often do you have a drink containing alcohol?: Never 2. How many drinks containing alcohol do you have on a typical day when you are drinking?: 1 or 2 (0) 3. How often do you have six or more drinks on one occasion?: Never Total Score: 0 FLORINDA-7 AMB Questionnaire FLORINDA-7 Date FLORINDA - 7 assessed: 01/02/24 Feeling nervous, anxious, or on edge: 0 = Not at all Not being able to stop or control worryin = Not at all Worrying too much about different things: 0 = Not at all Trouble relaxin = Not at all Being so restless that it is hard to sit still: 0 = Not at all Becoming easily annoyed or irritable: 0 = Not at all Feeling afraid as if something awful might happen: 0 = Not at all Total FLORINDA-7 score (0-4 normal; 5-9 mild; 10-14 moderate; 15-21 severe): 0 Source: Developed by Drs. Benigno See, Paige Prescott, Andrea Roa and colleagues, with an educational pavan from [email or web address]. FLORINDA-7 Assessment Billing FLORINDA-7 Assessment Tool: FLORINDA-7 Assessment 56302 Physical exam (Primary Care) Vital Signs: Oxygen Delivery Method Room Air 01/02/24 16:10 Tobacco/Smoking Status: Tobacco use Status Tobacco use date assessed 01/02/24 01/02/24 16:11 Patient Tobacco Use Status Never used Tobacco 01/02/24 16:11 e-Cigarette/Vaping Use Never Used 01/02/24 16:11 Thrive Assessment: Date of Thrive Assessment Date Thrive assessed 01/02/24 01/02/24 16:11 Currently or been in a relationship where the following occur: no concerns reported Const General: alert; No acute distress HENMT Head: Yes normocephalic Ears: external ears normal and TM's normal bilaterally Face and sinus: Yes normal facial exam Mouth: moist mucous membranes Throat: Yes tonsils normal Eyes Conjunctivae: conjunctivae normal Pupils: Equal, round and reactive pupils present and Pupil accommodation reflex normal Direct Ophthalmoscopy: normal light reflex Neck Neck: No lymphadenopathy Thyroid: Thyroid normal Chest Chest palpation & inspection: normal inspection of the chest Resp Effort & Inspection: normal respiratory effort and no audible wheezes Auscultation: clear to auscultation bilaterally Cardio Rate: regular rate Rhythm: regular rhythm Peripheral pulses: radial pulses present and dorsalis pedis present GI Inspection: Yes normal to inspection Palpation (GI): no masses Auscultation: normal bowel sounds and normoactive bowel sounds Rectal Exam - Female: deferred Skin General skin exam: no rashes or lesions noted Rashes: no rashes Neuro General: deep tendon reflexes 2+ bilaterally Cranial nerves: Yes Equal, round and reactive pupils present, Yes Midline tongue present and Yes Ability to bilaterally elevate shoulders present Cognition (Neuro): normal cognition Gait exam (Neuro): Normal gait present Motor exam (neuro): 5/5 motor strength present throughout Deep tendon reflexes (DTR's): Right brachioradialis reflex intensity grade: 2+, Left brachioradialis reflex intensity grade: 2+, Right patellar reflex intensity grade: 2+ and Left patellar reflex intensity grade: 2+ Extrem General: Yes normal to inspection and No edema Assessment and Plan Assessment & Plan (1) Annual physical exam: Code(s): Z00.00 - Encounter for general adult medical examination without abnormal findings (2) Shoulder pain, left: Comment: 2023 acromioclavicular osteoarthritis Code(s): M25.512 - Pain in left shoulder Plan: Resolving (3) Psoriasis: Comment: Dr. Curry Code(s): L40.9 - Psoriasis, unspecified Plan: Patient follows up with Dermatology (4) Hypercholesterolemia: Comment: January 2022 CT angiogram nonobstructive coronary artery disease Code(s): E78.00 - Pure hypercholesterolemia, unspecified Plan: Avoid fried foods, chicken skin, eggs, butter margarine, pastries and meat. Be it pork or beef they have a lot of cholesterol presently on simvastatin 5 mg at bedtime (5) Near syncope: Code(s): R55 - Syncope and collapse (6) Blood pressure elevated without history of HTN: Code(s): R03.0 - Elevated blood-pressure reading, without diagnosis of hypertension (7) Blood pressure elevated without history of HTN: Code(s): R03.0 - Elevated blood-pressure reading, without diagnosis of hypertension Orders: Orders CA echo transthoracic complete Today R03.0 - Elevated blood-pressure reading, without diagnosis of hypertension Coding Level of Care Code New Pt Prev Care 40-64y(41451) Diagnoses Annual physical exam Z00.00 Shoulder pain, left M25.512 Psoriasis L40.9 Hypercholesterolemia E78.00 Near syncope R55 Blood pressure elevated without history of HTN R03.0 Additional Codes FLORINDA-7 Assessment Billing - FLORINDA-7 Assessment Tool: FLORINDA-7 Assessment [id number] ([id number])
== END 2024-01-02 16:43 | disposition home or self-care (01) ==
PROVIDERS: Visit Provider Internal Medicine
DX: Z00.00 Encounter for general adult medical examination without abnormal findings (principal); M25.512 Pain in left shoulder; L40.9 Psoriasis, unspecified; E78.00 Pure hypercholesterolemia, unspecified; R55 Syncope and collapse; R03.0 Elevated blood-pressure reading, without diagnosis of hypertension
CPT/HCPCS: 99396

== ENCOUNTER → 2024-01-20 15:01 | Outpatient (REF) | payer BC, SELFPAY ==
--- NOTE | 2024-01-20 15:04 | CA_ITS ---
Transthoracic Echocardiogram Patient (Last, First, Middle): Deandra Matt, Gender: Female Date of : 1965 Age: 58 Procedure Date: 01/20/2024 Procedure Type: Transthoracic Echocardiogram Location: OP Height: 170.18 cm Weight: 62.6 kg BSA: 1.73 m2 Heart Rate: bpm BP: 148 / 72 mmHg Academic Specialist: TO Referring MD: Calvin Bennett MD Symptoms: R03.0 - Elevated blood-pressure reading, without diagnosis of hypertension Study Quality: Fair ECG Rhythm: Sinus Conclusions: - The left ventricular systolic function is normal. The calculated ejection fraction is 59% by biplane method. - No obvious valvular pathology seen on this study. Findings Left Ventricle Normal left ventricular cavity size. There is normal left ventricular wall thickness. The left ventricular systolic function is normal. The calculated ejection fraction is 59% by biplane method. There is no evidence of regional wall motion abnormalities. Diastolic function is normal for age. LV peak GLS -20.8% (normal). Right Ventricle Normal right ventricular cavity size and systolic function. Atria Both atria are normal in size. Aortic Valve There is a normal trileaflet aortic valve. There is no aortic valve stenosis. There is no aortic valve regurgitation. Mitral Valve The mitral valve appears normal. There is no mitral valve regurgitation. There is no mitral valve stenosis. Pulmonic Valve The pulmonic valve is likely normal. Tricuspid Valve Normal tricuspid valve structure. There is trace tricuspid valve regurgitation. There is no evidence of pulmonary hypertension. Great Vessels The asc aorta is normal in size. Venous The inferior vena cava is dilated and collapses greater than 50% with inspiration. Pericardium/Pleural There is no evidence of pericardial effusion. Prior Study Comparison No prior study available for comparison. Recommendations, Care & Conclusions No obvious valvular pathology seen on this study. Measurements 2D Linear Measurements IVSd: 0.76 0.6-0.9/0.6-1.0 cm LVIDd: 4.63 3.9-5.3/4.2-5.9 cm LVIDd Index: 2.68 2.4-3.2/2.2-3.1 cm/m2 LVIDs: 3.32 2.0-3.6 cm LVPWd: 0.70 0.7-1.1 cm LA Diam: 3.30 2.7-3.8/3.0-4.0 cm LAIDs Index: 1.91 1.5-2.3 cm/m2 LV Mass: 131.68 67-162/88-224 g LV Mass Index: 76.11 43-95/49-115 g/m2 LVOT Diam: 2.20 3.0+(-)1.3 cm 2D Systolic Function EF 4C: 61.40 >55% EF 2C: 57.60 >55% EF BiP: 59.40 >55% Mitral Valve MV Pk E: 0.79 MV PK A: 0.63 MV Decel Time: 204.00 E/A: 1.30 E'Lateral: 12.20 E'Medial: 9.36 E/E' Med: 8.50 E/E' Lat: 6.50 PHT: 60.00 MVA PHT: 3.67 Decel Kershaw: 3.89 Aortic Valve AoV Pk Pérez: 1.57 AoV Mn Pérez: 1.01 AoV VTI: 0.31 AoV Pk Grad: 10.00 Aov Mn Grad: 5.00 POPPY Cont.VTI: 2.90 LVOT LVOT Pk Pérez: 1.18 LVOT Mn Pérez: 0.77 LVOT VTI: 0.23 LVOT Pk Grad: 6.00 LVOT Mn Grad: 3.00 LVOT Diam: 2.20 LVOT Area: 3.80 Diastolic Function MV Pk E: 0.79 MV Pk A: 0.63 E/A: 1.30 E'Medial: 9.36 E/E' Med: 8.50 E' Laterial: 12.20 E/E' Lat: 6.50 Right Ventricle TAPSE (mm): 22.20 TVS' Pérez: 13.60 Tricuspid Valve TR Pk Pérez: 1.87 TR Pk Grad: 14.00 RA Press: 8.00 RVSP: 22.00 Great Vessels Aorta Sinus of Valsalva: 3.42 2.0-3.5 cm Ao Asc: 2.80 2.1-3.4 cm Ao Arch: 2.80 Updated in Other Vendor System with Status of Final Markos Madrigal MD electronically signed on 01/21/2024 11:37:49 AM with status of Final
== END ==
LOC: HO.CARD 15:01
PROVIDERS: PCP Internal Medicine; Visit Provider Internal Medicine
DX: R03.0 Elevated blood-pressure reading, without diagnosis of hypertension (principal)
CPT/HCPCS: 93306; 93356

== ENCOUNTER → 2024-01-20 15:04 | Outpatient (BNV) | payer BC, SELFPAY | PROVIDERS: PCP Internal Medicine; Visit Provider Internal Medicine | DX: R03.0 Elevated blood-pressure reading, without diagnosis of hypertension (principal) | CPT/HCPCS: 93306; 93356 ==

== ENCOUNTER → 2024-04-01 10:15 | Outpatient (BNV) | payer BC, SELFPAY | PROVIDERS: PCP Internal Medicine; Visit Provider Radiology Diagnostic Radiology | DX: Z12.31 Encounter for screening mammogram for malignant neoplasm of breast (principal) | CPT/HCPCS: 77063; 77067 ==

== ENCOUNTER 2024-04-01 10:23 | Outpatient (REF) | payer BC, SELFPAY | END 2024-04-01 10:24 | disposition home or self-care (01) | LOC: HO.MAMMO 10:23 | PROVIDERS: PCP Internal Medicine; Visit Provider Internal Medicine | DX: Z12.31 Encounter for screening mammogram for malignant neoplasm of breast (principal) | CPT/HCPCS: 77063; 77067 ==

== ENCOUNTER 2024-04-27 16:03 | Outpatient (AMB) | payer BC, SELFPAY ==
[2024-04-27 16:10] VITALS: BP 132/60; PULSE 75; O2SAT 99; BMI 22.6
--- NOTE | 2024-04-27 16:10 | MHC.PC.OV ---
Vital Signs 04/27/24 16:10 Height 5 ft 5.5 in Weight 138 lb BMI 22.6 BP 132/60 Blood Pressure Location Lt brachial Position Sitting Pulse 75 Pulse Source Pulse Oximeter Pulse Oximetry (%) 99 Oxygen Delivery Method Room Air Intake Visit Reasons: near syncope Director Skills: Not Required per policy Accompanied by: Self / Same As Patient Allergies No Known Allergies [No Known Allergies*] Allergy (Verified 01/02/24 16:14) Tobacco use date assessed: 01/02/24 Dental Screening Dental Screen Date: 01/02/24 HPI near syncope HPI Details 58-year-old female with a history of psoriasis hypercholesterolemia last seen in December 2023. Patient had a near syncopal episode. Patient had an echocardiogram January 2024 The left ventricular systolic function is normal. The calculated ejection fraction is 59% by biplane method. - No obvious valvular pathology seen on this study. 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 diagnosis of impingement syndrome treated conservatively [facility] Medical History Basal cell carcinoma (BCC) Mild heartburn Arthritis Candidiasis of mouth Family history of polyps in the colon Hypercholesterolemia Psoriasis Surgical History H/O colonoscopy History of surgery Family History Father Diabetes Hypertension CVD (cardiovascular disease) Mother CVD (cardiovascular disease) Hypertension Sister Melanoma Paternal Aunt Breast cancer Maternal Grandfather Bone cancer Paternal Uncle Melanoma Colon cancer Paternal Grandmother No problems noted. Paternal Grandfather CVD (cardiovascular disease) Social History (Updated 09/30/23 @ 10:46 by Geovanna Parekh CMA) Housing: House Alcohol intake: never Patient Tobacco Use Status: Never used Tobacco e-Cigarette/Vaping Use: Never Used Second Hand Smoke Exposure: No service: No Current occupational status: employed Current occupation: Occupational Therapy Cognitive needs: No Hearing needs: No Vision needs: No Questionnaire Thrive Questionnaire Date Thrive assessed: 01/02/24 FLORINDA-7 AMB Questionnaire FLORINDA-7 Date FLORINDA - 7 assessed: 01/02/24 Source: Developed by Drs. Benigno See, Paige Prescott, Andrea Roa and colleagues, with an educational pavan from [employer]. Physical exam (Primary Care) Vital Signs: Last Vital Signs Pulse 75 04/27/24 16:10 BP 132/60 04/27/24 16:10 Pulse Ox 99 04/27/24 16:10 Oxygen Delivery Method Room Air 04/27/24 16:10 BMI result Body Mass Index 22.6 Tobacco/Smoking Status: Tobacco use Status Tobacco use date assessed 01/02/24 01/02/24 16:11 Patient Tobacco Use Status Never used Tobacco 01/02/24 16:11 e-Cigarette/Vaping Use Never Used 01/02/24 16:11 Thrive Assessment: Date of Thrive Assessment Date Thrive assessed 01/02/24 01/02/24 16:11 Const General: alert; No acute distress Eyes Conjunctivae: conjunctivae normal Resp Auscultation: clear to auscultation bilaterally Cardio Rate: regular rate Rhythm: regular rhythm GI Inspection: Yes normal to inspection Extrem General: Yes normal to inspection and No edema Assessment and Plan Assessment & Plan (1) Hypercholesterolemia: Comment: January 2022 CT angiogram nonobstructive coronary artery disease Code(s): E78.00 - Pure hypercholesterolemia, unspecified Plan: Presently on simvastatin 5 mg once a day December LDL 124. Avoid fried foods, chicken skin, eggs, butter margarine, pastries and meat. Be it pork or beef they have a lot of cholesterol ASCVD Risk 2.8% 10 year lifetime 27 % (2) Near syncope: Code(s): R55 - Syncope and collapse Plan: So far workup has been negative showing echocardiogram within normal limits blood work though was last December 2023 (3) Shoulder pain, left: Comment: 2023 acromioclavicular osteoarthritis Code(s): M25.512 - Pain in left shoulder Plan: Patient has seen Orthopedics and being treated conservatively Coding Level of Care Code Est Pt Level 4 (86229) Diagnoses Hypercholesterolemia E78.00 Near syncope R55 Shoulder pain, left M25.512
== END 2024-04-27 16:29 | disposition home or self-care (01) ==
PROVIDERS: PCP Internal Medicine; Visit Provider Internal Medicine
DX: E78.00 Pure hypercholesterolemia, unspecified (principal); R55 Syncope and collapse; M25.512 Pain in left shoulder
CPT/HCPCS: 99214

== ENCOUNTER 2025-01-06 16:11 | Outpatient (AMB) | payer BC, SELFPAY ==
--- NOTE | 2025-01-06 16:13 | MHC.PC.OV ---
Vital Signs 01/06/25 16:14 Height 5 ft 5.5 in Weight 135 lb 8 oz BMI 22.2 BP 132/70 Blood Pressure Location Lt brachial Position Sitting Pulse 65 Pulse Source Pulse Oximeter Pulse Oximetry (%) 97 Oxygen Delivery Method Room Air Intake Visit Reasons: annual exam Police Superintendent Required: No Accompanied by: Self / Same As Patient Allergies No Known Allergies [No Known Allergies*] Allergy (Verified 01/06/25 16:15) Medication List - Last Reconciled 01/06/25 by Calvin Bennett MD calcipotriene 0.005% 1 appl topical BID cholecalciferol (vitamin D3) 50 mcg PO DAILY clobetasol 0.05% 1 appl topical BEDTIME risankizumab-rzaa (Skyrizi) mg subcut simvastatin 5 mg PO BEDTIME Tobacco use date assessed: 01/06/25 Dental Screening Dental Screen Date: 01/06/25 Did you have a dental visit in the last 12 months?: Yes Did you have a dental problem in the last 6 months where you did not have access to dental care?: No Was dental information given to patient?: Patient has dentist [facility] Medical History Basal cell carcinoma (BCC) Mild heartburn Arthritis Candidiasis of mouth Family history of polyps in the colon Hypercholesterolemia Psoriasis Surgical History H/O colonoscopy History of surgery Family History Father Diabetes Hypertension CVD (cardiovascular disease) Mother CVD (cardiovascular disease) Hypertension Sister Melanoma Paternal Aunt Breast cancer Maternal Grandfather Bone cancer Paternal Uncle Melanoma Colon cancer Paternal Grandmother No problems noted. Paternal Grandfather CVD (cardiovascular disease) Social History Housing: House Alcohol intake: never Patient Tobacco Use Status: Never used Tobacco e-Cigarette/Vaping Use: Never Used Second Hand Smoke Exposure: No service: No Current occupational status: employed Current occupation: Occupational Therapy Cognitive needs: No Hearing needs: No Vision needs: No Questionnaire PHQ-9 Over the last 2 weeks, how often have you been bothered by any of the following problems? 1. Little interest or pleasure in doing things: not at all 2. Feeling down, depressed, or hopeless: several days 3. Trouble falling or staying asleep, or sleeping too much: several days 4. Feeling tired or having little energy: several days 5. Poor appetite or overeating: not at all 6. Feeling bad about yourself - or that you are a failure or have let yourself or your family down: not at all 7. Trouble concentrating on things, such as reading the newspaper or watching television: not at all 8. Moving or speaking so slowly that other people could have noticed. Or the opposite - being so fidgety or restless that you have been moving around a lot more than usual: not at all 9. Thoughts that you would be better off or of hurting yourself in some way: not at all Total score: 3 Source: Developed by Drs. Benigno See, Paige Prescott, Andrea Roa and colleagues, with an educational pavan from [employer]. Thrive Questionnaire Date Thrive assessed: 01/06/25 I am a: Patient What is your living situation today?: I have a steady place to live Within the past 12 months, did the food you bought not last and you didn't have the money to get more?: Never true Within the past 12 months, did you worry whether your food would run out before you got money to buy more?: Never true Do you have trouble paying for medicines?: No Do you have trouble getting transportation to medical appointments?: No Do you have trouble paying your heating and electricity bill?: No Do you have trouble taking care of your child, family member or friend?: No Do you have trouble with day-to-day activities such as bathing, preparing meals, shopping, managing finances, etc.?: No Are you currently unemployed and looking for a job?: No Are you interested in more education?: No Please select the resources that you would like help with: None Currently or been in a relationship where the following occur: No concerns reported THRIVE Score: 0 AUDIT C Alcohol Use Questionnaire (AUDIT-C) 1. How often do you have a drink containing alcohol?: Never 3. How often do you have six or more drinks on one occasion?: Never Total Score: 0 FLORINDA-7 AMB Questionnaire FLORINDA-7 Date FLORINDA - 7 assessed: 01/06/25 Feeling nervous, anxious, or on edge: 1 = Several days Not being able to stop or control worryin = Not at all Worrying too much about different things: 1 = Several days Trouble relaxin = Not at all Being so restless that it is hard to sit still: 0 = Not at all Becoming easily annoyed or irritable: 0 = Not at all Feeling afraid as if something awful might happen: 0 = Not at all Total FLORINDA-7 score (0-4 normal; 5-9 mild; 10-14 moderate; 15-21 severe): 2 Source: Developed by Drs. Benigno See, Paige Prescott, Andrea Roa and colleagues, with an educational pavan from [employer]. Review of Systems Const Denies poor appetite and Denies weakness Eyes Denies no additional complaints ENT Reports Normal hearing present, Denies dizziness, Denies nasal congestion, Denies tinnitus and Denies sore throat Card Denies chest pain, Denies syncope, Denies rapid heart rate and Denies dyspnea Resp Denies cough and Denies dyspnea GI Denies change in stool character, Reports constipation, Denies diarrhea, Denies nausea and Denies vomiting Denies urinary frequency, Denies difficulty voiding and Denies dysuria Neuro Reports Normal hearing present, Denies confusion, Denies dizziness, Denies syncope and Denies weakness Psych Denies confusion Physical exam (Primary Care) Vital Signs: Last Vital Signs Pulse 65 01/06/25 16:14 BP 132/70 01/06/25 16:14 Pulse Ox 97 01/06/25 16:14 Oxygen Delivery Method Room Air 01/06/25 16:14 BMI result Body Mass Index 22.2 Tobacco/Smoking Status: Tobacco use Status Tobacco use date assessed 01/06/25 01/06/25 16:21 Patient Tobacco Use Status Never used Tobacco 01/06/25 16:21 e-Cigarette/Vaping Use Never Used 01/06/25 16:21 PHQ-9: PHQ-9 Score PHQ-9: Total score 3 01/06/25 16:21 Thrive Assessment: Date of Thrive Assessment Date Thrive assessed 01/06/25 01/06/25 16:21 Currently or been in a relationship where the following occur: No concerns reported Const General: No confusion Orientation/consciousness: No confusion HENMT Head: Yes normocephalic Ears: external ears normal and TM's normal bilaterally Face and sinus: Yes normal facial exam Mouth: moist mucous membranes Throat: Yes tonsils normal Eyes Conjunctivae: conjunctivae normal Pupils: Equal, round and reactive pupils present and Pupil accommodation reflex normal Direct Ophthalmoscopy: normal light reflex Neck Neck: No lymphadenopathy Thyroid: Thyroid normal Chest Chest palpation & inspection: normal inspection of the chest Resp Effort & Inspection: normal respiratory effort and no audible wheezes Auscultation: clear to auscultation bilaterally, no crackles, no wheezes and lung sounds not diminished Cardio Rate: regular rate Rhythm: regular rhythm Peripheral pulses: radial pulses present and dorsalis pedis present GI Palpation (GI): no masses Auscultation: normal bowel sounds and normoactive bowel sounds Rectal Exam - Female: deferred Back/Spine/Pelvis Back/spine/pelvis image: 1. Tender on deep palpation on the gluteal area Skin General skin exam: no rashes or lesions noted Rashes: no rashes Neuro General: No confusion Cranial nerves: Yes Equal, round and reactive pupils present and Yes Normal hearing present Cognition (Neuro): normal cognition Gait exam (Neuro): Normal gait present Motor exam (neuro): 5/5 motor strength present throughout Deep tendon reflexes (DTR's): Right brachioradialis reflex intensity grade: 2+, Left brachioradialis reflex intensity grade: 2+, Right patellar reflex intensity grade: 2+ and Left patellar reflex intensity grade: 2+ Extrem Other: Toenail left big toe ingrown General: No edema Coding Level of Care Code Est Pt Prev Care 40-64y(86482) Diagnoses Annual physical exam Z00.00 Hypercholesterolemia E78.00 Psoriasis L40.9 Near syncope R55 Ingrowing nail, left great toe L60.0 Assessment & Plan Assessment & Plan (1) Annual physical exam: Code(s): Z00.00 - Encounter for general adult medical examination without abnormal findings Category: Medical Plan: Patient is advised to eat healthy, keep well hydrated, keep active and have adequate sleep. (2) Hypercholesterolemia: Comment: January 2022 CT angiogram nonobstructive coronary artery disease Code(s): E78.00 - Pure hypercholesterolemia, unspecified Category: Medical Plan: Avoid fried foods, chicken skin, eggs, butter margarine, pastries and meat. Be it pork or beef they have a lot of cholesterol LDL goal of less than 130 and triglyceride of less than 150. Patient will need blood work patient is on simvastatin 5 mg once a day (3) Psoriasis: Comment: Dr. Curry Code(s): L40.9 - Psoriasis, unspecified Category: Medical Plan: Continue with Dermatology follow-up (4) Near syncope: Code(s): R55 - Syncope and collapse Category: Medical Plan: Stable (5) Ingrowing nail, left great toe: Code(s): L60.0 - Ingrowing nail Category: Medical Plan History of Present Illness The patient is a 59-year-old female presenting with a wellness visit and concerns such as an ingrown toenail and hip pain. Her history is notable for hypercholesterolemia, managed with simvastatin, and psoriasis under dermatological care. She previously underwent a colonoscopy in 2020 due to a history of tubular adenoma, requiring regular surveillance. Recently, she has struggled with a painful and swollen ingrown toenail on the left foot, an issue that has persisted episodically over the years but exacerbated in recent weeks. She also reports hip pain, suggestive of arthritis, impacting her physical activities, notably when driving. Health Maintenance - Up-to-date mammogram as of March 2024 - Last colonoscopy in 2020, normal findings, interval for next test to be determined - Electrolytes normal as of December 2023, with blood glucose at 100 mg/dL - Cholesterol management plan with LDL goal < 130 mg/dL, triglycerides < 150 mg/dL - Regular dermatology follow-up due to psoriasis - Flu and tetanus vaccinations up-to-date; shingles shot recommended - No recent COVID-19 or flu infections noted Social History - Does not consume alcohol - No history of smoking - Engages in physical activities, though limited due to hip pain - Experiences fatigue related to recent aging - Ingrown toenail issues likely related to narrow footwear Review of Systems - Cardiovascular: Denies chest pain, palpitations; family history of cardiovascular disease - Gastrointestinal: Reports heartburn due to GERD; denies any change in bowel habits - Musculoskeletal: Reports hip pain, likely arthritis; reports painful ingrown toenail - Neurological: Denies dizziness, syncope; recent episode of near syncope noted - Dermatological: No new lesions reported, psoriasis under treatment Physical Exam General: Cooperative, healthy appearing, comfortable, no acute distress and well developed Orientation: Patient oriented x3 Limitations: No limitations Head: Normal to inspection Ears: Hearing grossly normal bilaterally Nose: Normal external nose present Face and sinus: Normal facial exam Eyes: Appearance normal, both eyes and all related structures. Nighttime vision issues reported, with brightness and blurriness. Neck: Normal visual inspection and Yes full ROM Respiratory: Normal respiratory effort and able to speak in complete sentences. Clear to auscultation bilaterally Cardiovascular: Regular rate and rhythm. Normal S1 and S2 GI: Normal to inspection. Soft to palpation and nontender Skin: No rashes or lesions noted Neuro: Patient oriented x3 Extremities: Normal to inspection. Left hip pain reported, likely arthritis. Ingrown toenail on the left side, swollen and painful. Results - Labs: Blood work in 2022 with normal blood count; liver function tests normal; blood sugar 100 mg/dL in December 2023 - No recent imaging or further diagnostic test results discussed Plan The plan includes continuing simvastatin 5 mg daily, maintaining cholesterol levels within target ranges. Psoriasis management will proceed with Segun under dermatological care. Referral to podiatry has been made for treatment of her ingrown toenail. Hip pain will be monitored and treated conservatively with anti-inflammatory options and physical therapy, with imaging to be considered should symptoms persist. Regular blood tests are recommended to assess overall health, particularly focusing on cholesterol levels and sugar control. Follow-up screenings like mammograms and colonoscopies will be continued per standard recommendations. Patient was informed and verbally consented to the use of an ambient scribe for clinic note documentation during this visit. Discussion Notes We discussed the importance of maintaining LDL cholesterol levels below 130 mg/dL and triglycerides below 150 mg/dL, with simvastatin continuing to play a hernández role. I outlined options for alleviating hip and ingrown toenail pain with conservative management and explained the potential necessity for specialist intervention if issues persist. We deliberated on advancing treatments for psoriasis if necessary and emphasized regular skincare management. I advised annual reviews of mammogram and at-term colonoscopies based on previous findings, addressing inherited risks given the family history of various cancers. The patient was informed about contact points for worsening symptoms or new developments. She understands and agrees with the recommended management plans and the outlined follow-up procedures. Patient Instructions - Continue taking simvastatin as prescribed. - Plan follow-up visits as outlined for ongoing management of hypercholesterolemia and psoriasis. - Engage in regular foot care to relieve the ingrown toenail and await podiatry consultation. - Monitor hip pain with gentle exercises, use supportive footwear, and consider [id number] anti-inflammatories. - Schedule screening tests, including a mammogram annually. - Follow up with dermatology for ongoing psoriasis management. - Seek care if hip pain worsens or if there are any new concerning symptoms. - Keep hydrated and maintain a nutritious diet. - Contact the office with any new symptoms or concerns. Orders: Orders Complete Blood Count Auto Diff Today E78.00 - Pure hypercholesterolemia, unspecified Comprehensive Met. Panel Today E78.00 - Pure hypercholesterolemia, unspecified Free T4 (Free Thyroxine) Today E78.00 - Pure hypercholesterolemia, unspecified Thyroid Stimulating Hormone Today E78.00 - Pure hypercholesterolemia, unspecified Lipid Panel Today E78.00 - Pure hypercholesterolemia, unspecified Vitamin B12 and Folate Today E78.00 - Pure hypercholesterolemia, unspecified Vitamin D 25-OH Total Today E78.00 - Pure hypercholesterolemia, unspecified Referrals Podiatry Referral L60.0 - Ingrowing nail Medications: Refilled simvastatin 5 mg PO BEDTIME 90 tabs 1RF E78.00 - Pure hypercholesterolemia, unspecified
[2025-01-06 16:14] VITALS: BP 132/70; PULSE 65; O2SAT 97; BMI 22.2
--- OUTSIDE RECORDS SUMMARY | 2025-01-06 17:07 | XMS_ITS | Clinical Summary ---
Author Organization [facility] Address [address] [place] [id number] Care Team Providers Care Helicopter Specialist Name Role Phone Unknown Primary Care Provider [phone] Social History Tobacco Use Types Packs/Day Years Used Date Smoking Tobacco: Never Assessed Sex and Gender Information Value Date Recorded Sex Assigned at Not on file Gender Identity Not on file Sexual Orientation Not on file Plan of Treatment Health Maintenance Due Date Last Done Comments Hepatitis C Virus Screening 1964 HIV Screening 1977 DTaP/Tdap/Td Vaccines (1 - Tdap) 1983 Pap Smear (Ages 21-65) 1985 Mammogram 2004 Colonoscopy 2009 Pneumococcal Vaccines 50+ (1 of 1 - PCV) 2014 Zoster (Shingles) Vaccine (1 of 2) 2014 Influenza Vaccine 05/06/2024 COVID-19 Vaccine ( - 2023-2 5 season) 2024 RSV Vaccine 60 years and old er and Patients (1 - 1-dose 75+ series) 2039 Hepatitis B Vaccines Aged Out No long er eligible based on patient's age to complete this topic Pneumococcal Vaccine: Pediat kimberly (0-5 Years) and At-Risk Patients (6 to 49 Years) Aged Out No longer eligible b ased on patient's age to complete this topic Care Teams Helicopter Specialist Relationship Specialty Start Date End Date Unknown Unknow Provider Address PCP - General 11/27/21
== END 2025-01-06 16:46 | disposition home or self-care (01) ==
LOC: HO.HMCH 16:12
PROVIDERS: PCP Internal Medicine; Visit Provider Internal Medicine
DX: Z00.00 Encounter for general adult medical examination without abnormal findings (principal); E78.00 Pure hypercholesterolemia, unspecified; L40.9 Psoriasis, unspecified; R55 Syncope and collapse; L60.0 Ingrowing nail

== ENCOUNTER 2025-01-27 09:08 | Outpatient (AMB) | payer BC, SELFPAY ==
--- NOTE | 2025-01-27 09:15 | MHC.OFFWIV ---
Intake Vital Signs 01/27/25 09:17 Weight 135 lb BP 110/70 Blood Pressure Location Lt brachial Position Sitting Pulse 85 Pulse Source Pulse Oximeter Temp 98.2 F Temp Source Oral Pulse Oximetry (%) 97 Oxygen Delivery Method Room Air Intake Visit Reasons: EP Rt ear pain, cold symptoms Intake Note: Patient here for right ear pain that has been present since friday. Patient Tobacco Use Status: Never used Tobacco Allergies No Known Allergies [No Known Allergies*] Allergy (Verified 01/27/25 09:18) Do you need a note to return to daycare/school/sports/work: No HPI HPI Comments History of Present Illness Details History - The patient is a 59-year-old female presenting with ear pain and concern for an ear infection. - She describes the onset of right ear pain occurring five days prior to consultation with noticeable muffled hearing. - The symptom chronology includes a cough that started on January 14, progressing by the with congestion, increasing concern by the . - No fever is reported, and hearing changes are described as both muffled and reduced. - Home COVID-19 test returned negative - Usage of nvam-rmz-ttrwuxs medication Sudafed has been reported, with acknowledgment of the patient's normotensive status. - Nocturnal symptoms are managed by positional changes (sleeping upright). Physical Exam General: Cooperative, healthy appearing, comfortable and no acute distress Orientation/consciousness: Patient oriented x3 Limitations: No limitations Head: Normal to inspection Ears: Hearing reduced in right ear. TM left with fluid. TM right with erythema and bulging, dull with loss of landmarks Nose: Normal external nose present, Normal nares present and No nasal discharge present Face and sinus: Normal facial exam Mouth: Normal oral and palatal mucosa present and moist mucous membranes Throat: Yes tonsils normal, Yes uvula midline. Posterior oropharynx erythema Eyes: Appearance normal, both eyes and all related structures Neck: Normal visual inspection Respiratory: Clear to auscultation bilaterally. Normal respiratory effort, able to speak in complete sentences, no respiratory distress, not tachypneic, no tripod positioning and no use of accessory muscles Cardiovascular: Regular rate and rhythm. Normal S1 and S2 Skin: No rashes or lesions noted Neuro: Patient oriented x3 Extremities: Normal to inspection and Yes no clubbing, cyanosis or edema [facility] Medical History Basal cell carcinoma (BCC) Mild heartburn Arthritis Candidiasis of mouth Family history of polyps in the colon Hypercholesterolemia Psoriasis Surgical History H/O colonoscopy History of surgery Family History Father Diabetes Hypertension CVD (cardiovascular disease) Mother CVD (cardiovascular disease) Hypertension Sister Melanoma Paternal Aunt Breast cancer Maternal Grandfather Bone cancer Paternal Uncle Melanoma Colon cancer Paternal Grandmother No problems noted. Paternal Grandfather CVD (cardiovascular disease) Social History Housing: House Alcohol intake: never Patient Tobacco Use Status: Never used Tobacco e-Cigarette/Vaping Use: Never Used Second Hand Smoke Exposure: No service: No Current occupational status: employed Current occupation: Occupational Therapy Cognitive needs: No Hearing needs: No Vision needs: No Review of Systems Const All systems reviewed & are unremarkable except as noted in HPI and below Physical Exam Vital Signs: Last Vital Signs Temp 98.2 F 01/27/25 09:17 Pulse 85 01/27/25 09:17 BP 110/70 01/27/25 09:17 Pulse Ox 97 01/27/25 09:17 Oxygen Delivery Method Room Air 01/27/25 09:17 HEENT Ears: TM abnormal Assessment & Plan Assessment & Plan (1) Otitis media: Code(s): H66.90 - Otitis media, unspecified, unspecified ear Qualifiers: Otitis media type: suppurative Chronicity: acute Laterality: right Recurrence: non-recurrent Spontaneous tympanic membrane rupture: without spontaneous rupture Qualified Code(s): H66.001 - Acute suppurative otitis media without spontaneous rupture of ear drum, right ear Plan: VSS, pt well appearing and PE remarkable for right sided OM. The patient with Acute Otitis Media received a prescription for amoxicillin, formulated to target the suspected bacterial etiology, with the possibility of discontinuation after five days should symptom resolution occur. The patient was advised on Sudafed usage constraints, notably in relation to hypertension and excessive duration of use. The adjunctive use of saline nasal irrigation and Flonase nasal spray was recommended to facilitate decongestion. Current nocturnally adapted sleeping positions to mitigate cough-induced sleep disruptions were encouraged, determining that further intervention was unnecessary. The patient was advised to collect medication from [facility] and to maintain fluid intake for symptom alleviation. A viral panel testing strategy was considered to affirm the bacterial focus of current symptoms but as it has been 3 weeks, not likely to result in anything. Patient was informed and verbally consented to the use of an ambient scribe for clinic note documentation during this visit Medications: New amoxicillin 875 mg PO Q12H 14 tabs 0RF Coding Level of Care Code Est Pt Level 3 (55144) Diagnoses Non-recurrent acute suppurative otitis media of right ear without spontaneous rupture of tympanic membrane H66.001 Otitis media type: suppurative Chronicity: acute Laterality: right Recurrence: non-recurrent Spontaneous tympanic membrane rupture: without spontaneous rupture
[2025-01-27 09:17] VITALS: BP 110/70; PULSE 85; TEMP 36.8; O2SAT 97
--- OUTSIDE RECORDS SUMMARY | 2025-01-27 09:53 | XMS_ITS | Patient Health Record ---
Author Organization [facility] minerva [place] Address [address] [place] [address] Care Team Providers Care Cellophane Bag Machine Operator Name Role Phone Calvin Bennett Primary Care Provider Deanna Wynn Unavailable [phone] Reason For Referral No Information Medications Medication SIG (Take, Route, Fr equency, Duration) Notes Start Date End Date Status Diflucan 150 MG 1 tablet Orally Once a day for 1 dose 12/17/2012 Active Humira 40 MG/0.8ML 0.8 Subcutaneous for 30 day(s) Active Problems Problem Type SNOMED Code ICD Code Onset Dates Problem Status W/U Status Risk Notes Problem Bursitis (34731775) Bursitis (727.3) Active confirmed Problem Myositis (59437221) Myositis (729.1) Active confirmed Problem Pain in limb (93626787) Pain in Limb (729.5) Active confirmed Problem Paronychia (05136397) Paronychia (681.11) Active confirmed Problem Plantar fasciitis (244377821) Plantar Fasciitis (728.71) Active confirmed Plan Of Treatment Pending Test Test Name Order Date X ray : Foot, left 3V 09/21/2012 X ray : Foot, right 3V 09/21/2012 Next Appt Details Provider Name:Deanna silverman, 04/07/2025 10:30:00 AM, [address] [facility], [place], [address], Insurance Providers Payer Name Payer Address Payer Phone Subscriber Number Group Number Insured Name Patient Relationship to Insured Coverage Start Date Coverage End Date [employer] [address] [place] [address] [id number] Deandra Galvan Self - patient is the insured Medical (General) History Medical History History ICD Code Arthritis psoriasis reflux
--- OUTSIDE RECORDS SUMMARY | 2025-01-27 09:53 | XMS_ITS | Clinical Summary ---
Author Organization [facility] Address [address] [place] [address] Care Team Providers Care Flight Attendant/Inflight Supervisor Name Role Phone Unknown Primary Care Provider [phone] Social History Tobacco Use Types Packs/Day Years Used Date Smoking Tobacco: Never Assessed Comments Unknown Sex and Gender Information Value Date Recorded Sex Assigned at Not on file Legal Sex Female 6:56 PM EST Gender Identity Not on file Sexual Orientation [...] on patient's age to complete this topic Insurance [facility] PPO Care Teams Flight Attendant/Inflight Supervisor Relationship Specialty Start Date End Date Unknown Unknow Provider Address PCP - General 11/27/21
== END 2025-01-27 09:54 | disposition home or self-care (01) ==
PROVIDERS: PCP Internal Medicine; Visit Provider Physician Assistant
DX: H66.001 Acute suppurative otitis media without spontaneous rupture of ear drum, right ear (principal)

== ENCOUNTER → 2025-01-27 09:08 | Outpatient (BNVA) | payer BC, SELFPAY | PROVIDERS: PCP Internal Medicine; Visit Provider Physician Assistant ==

== ENCOUNTER 2025-04-06 10:01 | Outpatient (AMB) | payer BC, SELFPAY ==
[2025-04-06 10:11] VITALS: BP 120/56; PULSE 77; TEMP 36.9; O2SAT 99; BMI 22.8
--- NOTE | 2025-04-06 10:11 | AM.OFFWIN_ITS ---
Intake Vital Signs 04/06/25 10:11 Height 5 ft 5.5 in Weight 139 lb 6 oz BMI 22.8 BP 120/56 L Blood Pressure Location Lt brachial Position Sitting Pulse 77 Pulse Source Pulse Oximeter Temp 98.4 F Temp Source Oral Pulse Oximetry (%) 99 Oxygen Delivery Method Room Air Intake Visit Reasons: EP LT hip pain Intake Note: presents with left hip pain for couple days Patient Tobacco Use Status: Never used Tobacco Allergies No Known Allergies (No Known Allergies*) Allergy (Verified 04/06/25 10:14) HPI HPI Comments History of Present Illness Details History - The patient is a 59-year-old female pr esenting with left hip pain. - The pain began after prolonged driving and hiking, with a five-hour drive followed by a hike and another five-hour drive back, leading to irritation and pain. - The pain worsened after another three- hour drive the following day, resulting in severe pain and difficulty walking. - The patient used an umbrella as a cane due to the severity of the pain and had difficulty with basic activities such as putting on shoes and socks. - Heat application and massage provided some relief, and the patient took 600 mg of ibuprofen, which improved the pain slightly. - Stretching exercises exacerbated the p ain, leading to tears, and the patient avoided hip flexion to prevent worsening of symptoms. - There is no associated back pain or ra diation of pain down the leg, and the pain is localized to the hip area. - The patient has a history of possible sacroiliac joint issues in the past. - She denies CP, SOB, abd pain, saddle a nesthesia, incontinence of urine or stool, numbness, or tingling. - She denies fall or trauma. Physical Exam General: cooperative, healthy appearing and comfortable, patient oriented x3 Head: Normal to inspection, normocephalic/atraumatic Effort & Inspection: Normal respiratory effort and able to speak in complete sentences. Cardiac: RRR, no M/R/G noted. Normal S1 and S2. Respiratory: Clear to auscultation bilaterally. No w/r/r noted. Back/spine: Cervical, thoracic and lumbar spine normal to inspection. Cervical ROM normal, no midline spinous tenderness noted. Thoracic ROM normal, lumbar ROM normal. No midline vertebral spinous tenderness noted. No step offs noted. No TTP of the thoracic or lumbar paraspinous or paravertebral muscles. DTR are 2+ on the lower extremities noted. Ambulates with a steady gait. Extremities: Straight leg raise test negative on right; Straight leg raise test negative on left; motor strength normal 5/5 bilaterally. Left hip painful with rotation. TTP of the left gluteus medius. No SI joint tenderness noted. Neuro: Sensation intact Patient was informed and verbally consented to the use of an ambient scribe for clinic note documentation during this visit. [facility] Medical History Basal cell carcinoma (BCC) Mild heartburn Arthritis Candidiasis of mouth Family history of polyps in the colon Hypercholesterolemia Psoriasis Surgical History H/O colonoscopy History of surgery Family History Father Diabetes Hypertension CVD (cardiovascular disease) Mother CVD (cardiovascular disease) Hypertension Sister Melanoma Paternal Aunt Breast cancer Maternal Grandfather Bone cancer Paternal Uncle Melanoma Colon cancer Paternal Grandmother No problems noted. Paternal Grandfather CVD (cardiovascular disease) Social History Housing: House Alcohol intake: never Patient Tobacco Use Status: Never used Tobacco e-Cigarette/Vaping Use: Never Used Second Hand Smoke Exposure: No service: No Current occupational status: employed Current occupation: Occupational Therapy Cognitive needs: No Hearing needs: No Vision needs: No Review of Systems Const All systems reviewed & are unremarkable except as noted in HPI and below Physical Exam Vital Signs: Last Vital Signs Temp 98.4 F 04/06/25 10:11 Pulse 77 04/06/25 10:11 BP 120/56 L 04/06/25 10:11 Pulse Ox 99 04/06/25 10:11 Oxygen Delivery Method Room Air 04/06/25 10:11 BMI result Body Mass Index 22.8 Results Reviewed Results Reviewed: reviewed the hip x-ray in the office Assessment & Plan Assessment & Plan (1) Left hip pain: Code(s): M25.552 - Pain in left hip Plan Most likely strain vs spasm vs arthritis vs sciatica Plan - Consideration of muscle relaxants to alleviate muscle tension and pain. - An x-ray of the hip was recommended to assess for any structural abnormalities. - Naproxen BID as needed for pain - Flexeril as needed - will refer her to PT - f/u with PCP Orders: Orders PT Evaluation and Treatment Today M25.552 - Pain in left hip XR hip LT w PEL1V Today M25.552 - Pain in left hip Medications: New cyclobenzaprine 5 mg PO Q8H PRN 21 tabs 0RF Muscle Spasm 7 days naproxen 500 mg PO Q12H PRN 20 tabs 0RF pain 7 days Coding Level of Care Code Est Pt Level 4 (12828) Diagnoses Left hip pain M25.552
--- OUTSIDE RECORDS SUMMARY | 2025-04-06 10:28 | XMS_ITS | Clinical Summary ---
Author Organization [facility] Address [address] [place] [address] Care Team Providers Care Ways Operator Name Role Phone Unknown Primary Care Provider [...] Zoster (Shingles) Vaccine (1 of 2) 2014 COVID-19 Vaccine ( - 2023-2 5 season) 2024 Influenza Vaccine 05/06/2025 RSV Vaccine 60 years and old er and Patients (1 - 1-dose 75+ series) 2039 Hepatitis B Vaccines Aged Out No long er eligible based on patient's age to complete this topic Insurance [facility] PPO Care Teams Ways Operator Relationship Specialty Start Date End Date Unknown Unknow Provider Address PCP - General 11/27/21
--- OUTSIDE RECORDS SUMMARY | 2025-04-06 10:28 | XMS_ITS | Patient Health Record ---
Author Organization [facility] [place] minerva [place] Address [address] [place] [address] Care Team Providers Care Mount Loader Name Role Phone Calvin Bennett Primary Care Provider Deanna Wynn Unavailable [phone] Allergies No Known Allergies Reason For Referral Diagnosis 1 Plantar fascial fibr omatosis (M72.2) Diagnosis 2 Myositis (729.1) Diagnosis 3 Pain in Limb (729.5) Diagnosis 4 Bursitis (727.3) Diagnosis 5 Paronychia (681.11) Referring Provider First Name Calvin Referring Provider Last Name [facility] Referred Provider Deanna Rivera Referred Address [address] [facility],[place],[address], Referred Provider Specialty Podiatry Referral Priority Routine Medications Medication SIG (Take, Route, Frequency, Duration) Notes Start Date End Date Status Diflucan 150 MG 1 tablet Orally Once a day; Duration: 1 dose 12/17/2012 Not-Taking Humira 40 MG/0.8ML 0.8 Subcutaneous; Duration: 30 day(s) Not-Taking Simvastatin 5 MG 2 tablets in the kendra rodriguez Orally Once a day Active Calcipotriene 0.005 % 1 application Exte rnally Twice a day Active Skyrizi 150 MG/ML 1 mL Subcutaneous Active Immunizations Vaccine Route Administration Date Status Comme nts Influenza Unknown 07/06/2024 Administered Social History Tobacco Use: Social History Observation Description Date Details (start date - stop date) Never Smoker NA - NA Tobacco use other than smoking: Question Answer Notes Are you an other tobacco user? No Tobacco Control (Standard) Question Answer Notes Tobacco use: Nonsmoker Additional Findings: Tobacco non-user Current no nsmoker AUDIT-C (Standard) Question Answer Notes Did you have a drink containing alcohol in the p ast year? No Points 0 Interpretation Negative Vital Signs Height 5ft 6.5inch in 03/23/2025 Weight 138 lbs 03/23/2025 BMI 21.94 kg/m2 03/23/2025 Procedures Procedure Date Ordered Date Performed Result Body Sit e 79471-Igoynttn Plate 03/23/2025 N/A Encounters Encounter Location Date Provider Diagnosis [facility] [place] [address] [place] [address] 03/23/2025 Deanna Rivera Ingrown nail L60.0 and Cellulitis of toe of left foot L03.032 Assessments Encounter Date Diagnosis (ICD Code) Assessment Notes Treatment Notes Treatment Clinical Notes Section Notes 03/23/2025 Ingrown nail (ICD-10 - L60.0) 03/23/2025 Cellulitis of toe of left foot (ICD-10 - L03.032) Plan Of Treatment Pending Test Test Name Order Date X ray : Foot, left 3V 09/21/2012 X ray : Foot, right 3V 09/21/2012 [id number] Plate 03/23/2025 Insurance Providers Payer Name Payer Address Payer Phone Subscriber Number Group Number Insured Name Patient Relationship to Insured Coverage Start Date Coverage End Date [facility] [address] [place] [address] [phone] [id number] Rosanna Galvan Self - patient is the insured Medical (General) History Medical History History ICD Code Arthritis psoriasis reflux Back,Hip,and Knee pain Broken bones Cholesterol Cancer covid-19 Diverticulosis Psoriasis/eczema Sciatica sinusitis Warts Measles Mumps Chicken pox Surgical History Surgery Date(Month/Year) skin cancer face skin cancer stomach
== END 2025-04-06 11:14 | disposition home or self-care (01) ==
PROVIDERS: PCP Internal Medicine; Visit Provider Physician Assistant Medical
DX: M25.552 Pain in left hip (principal)

== ENCOUNTER 2025-04-06 10:01 | Outpatient (REF) | payer BC, SELFPAY ==
--- NOTE | ~2025-04-06 | XR_ITS ---
EXAMINATION: XR HIP 1 VIEW LEFT WITH PELVIS HISTORY: M25.552 - Pain in left hip COMPARISON: There are no prior studies available for comparison. FINDINGS: A single AP view of the pelvis and two views of the left hip are submitted. Osseous mineralization is normal. There is no acute fracture or dislocation. The joint space is maintained. Well-corticated osseous densities adjacent to the greater trochanter may be the result of old trauma. XR/XR hip LT w PEL1V IMPRESSION: Well-corticated osseous densities adjacent to the greater trochanter may be the result of old trauma. Otherwise unremarkable examination of the left hip. Electronically signed by: Benigno Loera MD 04/06/2025 11:13 AM EDT
== END 2025-04-06 10:02 | disposition home or self-care (01) ==
LOC: HO.HMGCX 10:01
PROVIDERS: PCP Internal Medicine; Visit Provider Physician Assistant Medical
DX: M25.552 Pain in left hip (principal)
CPT/HCPCS: 73502

== ENCOUNTER → 2025-04-06 10:58 | Outpatient (BNV) | payer BC, SELFPAY | PROVIDERS: PCP Internal Medicine; Visit Provider Radiology Diagnostic Radiology | DX: M25.552 Pain in left hip (principal) | CPT/HCPCS: 73502 ==

== ENCOUNTER → 2025-04-07 10:45 | Outpatient (BNV) | payer BC, SELFPAY | PROVIDERS: PCP Internal Medicine; Visit Provider Internal Medicine | DX: Z12.31 Encounter for screening mammogram for malignant neoplasm of breast (principal) | CPT/HCPCS: 77063; 77067 ==

== ENCOUNTER 2025-04-07 10:48 | Outpatient (REF) | payer BC, SELFPAY ==
--- OUTSIDE RECORDS SUMMARY | 2025-04-07 11:37 | XMS_ITS | Clinical Summary ---
Author Organization [facility] Address [address] [place] [address] Care Team Providers Care Room Service Clerk Name Role Phone Unknown Primary Care Provider [...] patient's age to complete this topic Insurance [facility] PPO Care Teams Room Service Clerk Relationship Specialty Start Date End Date Unknown Unknow Provider Address PCP - General 11/27/21
--- OUTSIDE RECORDS SUMMARY | 2025-04-07 11:38 | XMS_ITS | Patient Health Record ---
Author Organization [facility] Khalida minerva Caney Address [address] [place] [address] Care Team Providers Care Ditch Rider Name Role Phone Calvin Bennett Primary Care Provider Deanna Wynn Unavailable [phone] Allergies No Known Allergies Reason For Referral Diagnosis 1 Plantar fascial fibr omatosis (M72.2) Diagnosis 2 Myositis (729.1) Diagnosis 3 Pain in Limb (729.5) Diagnosis 4 Bursitis (727.3) Diagnosis 5 Paronychia (681.11) Referring Provider First Name Calvin Referring Provider Last Name [facility] Provider Deanna Rivera Referred Address [address] [facility],[place], [place],[address], Referred Provider Specialty Podiatry Referral Priority Routine [...] Ordered Date Performed Result Body Sit e 72064-Dmbjvefx Plate 03/23/2025 N/A Encounters Encounter Location Date Provider Diagnosis [facility] [place] [address] 03/23/2025 Deanna Rivera Ingrown nail L60.0 and [...] X ray : Foot, right 3V 09/21/2012 [id number] Plate 03/23/2025 Insurance Providers Payer Name Payer Address Payer Phone Subscriber Number Group Number Insured Name Patient Relationship to Insured Coverage Start Date Coverage End Date [facility] [address] [place] [address] [id number] Rosanna Galvan Self - patient is the insured Medical (General) History Medical History History ICD Code Arthritis psoriasis reflux Back,Hip,and Knee pain Broken bones Cholesterol Cancer covid-19 Diverticulosis Psoriasis/eczema Sciatica sinusitis Warts Measles Mumps Chicken pox Surgical History Surgery Date(Month/Year) skin cancer face skin cancer stomach
== END 2025-04-07 10:49 | disposition home or self-care (01) ==
LOC: HO.MAMMO 10:48
PROVIDERS: PCP Internal Medicine; Visit Provider Internal Medicine
DX: Z12.31 Encounter for screening mammogram for malignant neoplasm of breast (principal)
CPT/HCPCS: 77063; 77067

== ENCOUNTER 2025-04-26 07:10 | Outpatient (AMB) | payer BC, SELFPAY ==
[2025-04-26 07:18] VITALS: BP 130/58; PULSE 79; TEMP 36.8; O2SAT 97; BMI 22.1
--- NOTE | 2025-04-26 07:18 | MHC.OFFWIV ---
Intake Vital Signs 04/26/25 07:18 Height 5 ft 5.5 in Weight 135 lb BMI 22.1 BP 130/58 L Blood Pressure Location Rt brachial Position Sitting Pulse 79 Pulse Source Pulse Oximeter Temp 98.3 F Temp Source Oral Pulse Oximetry (%) 97 Oxygen Delivery Method Room Air Intake Visit Reasons: EP severe pain on lower back Intake Note: presents with worsening right sided low back pain for 3 days Patient Tobacco Use Status: Never used Tobacco Allergies No Known Allergies (No Known Allergies*) Allergy (Verified 04/26/25 07:23) HPI HPI Comments History of Present Illness Details History - The patient is a 59-year-old female presenting with severe, constant hip pain suspected to be sciatica. - The pain is localized to the right hip, does not radiate down the leg, and has expanded in the buttock area. - She has a constant sharp, 10/10 pain in the left hip and buttock with no radiation. - She has not been able to get comfortable. - The patient reports inability to sleep due to pain and has experienced nausea and vomiting due to its intensity. - Previous episodes of sciatica were manageable with Advil and rest, but this episode is more severe. - She has been taking Advil with little relief. - She denies trauma or falls. - She denies back pain, CP, SOB, leg pain, saddle anesthesia, numbness, or tingling. - She is in PT and has her next appt is . Physical Exam General: cooperative, healthy appearing and comfortable, patient oriented x3 Effort & Inspection: Normal respiratory effort and able to speak in complete sentences. Cardiac: RRR, no M/R/G noted. Normal S1 and S2. Respiratory: Clear to auscultation bilaterally. No w/r/r noted. Back/spine: No CVA tenderness bilaterally. Cervical, thoracic and lumbar spine normal to inspection. Cervical ROM normal, no midline spinous tenderness noted. Thoracic ROM normal, lumbar ROM normal. No midline vertebral spinous tenderness noted. No step offs noted. No TTP of the thoracic or lumbar paraspinous or paravertebral muscles. DTR are 2+ on the lower extremities noted. Ambulates with help. Extremities: Decrease ROM of the right hip due to pain. TTP of the rigth SI joint. FROM of the right knee and ankle. No calf tenderness noted. Straight leg raise test negative on right; Straight leg raise test negative on left; motor strength normal 5/5 bilaterally. Neuro: Sensation intact. Patient was informed and verbally consented to the use of an ambient scribe for clinic note documentation during this visit. [facility] Medical History Basal cell carcinoma (BCC) Mild heartburn Arthritis Candidiasis of mouth Family history of polyps in the colon Hypercholesterolemia Psoriasis Surgical History H/O colonoscopy History of surgery Family History Father Diabetes Hypertension CVD (cardiovascular disease) Mother CVD (cardiovascular disease) Hypertension Sister Melanoma Paternal Aunt Breast cancer Maternal Grandfather Bone cancer Paternal Uncle Melanoma Colon cancer Paternal Grandmother No problems noted. Paternal Grandfather CVD (cardiovascular disease) Social History Housing: House Alcohol intake: never Patient Tobacco Use Status: Never used Tobacco e-Cigarette/Vaping Use: Never Used Second Hand Smoke Exposure: No service: No Current occupational status: employed Current occupation: Occupational Therapy Cognitive needs: No Hearing needs: No Vision needs: No Review of Systems Const All systems reviewed & are unremarkable except as noted in HPI and below Physical Exam Vital Signs: BMI result Body Mass Index 22.1 Office Meds ketorolac 30 mg/mL (1 mL) injection solution Performing Provider: Laura Monsalve PA-C [place] [facility] [place] [facility] Administered by: Laura Monsalve PA-C on 04/26/25 07:43 Dose Route Admin Location Dispensed Lot Number Expiration Date [facility] Clinical Project Manager 60 mg IM 2 mL [id number] 05/05/25 63713-705-47 [employer] Total Dispensed Waste 2 mL 0 % Assessment & Plan Assessment & Plan (1) Hip pain: Code(s): M25.559 - Pain in unspecified hip Qualifiers: Laterality: left Qualified Code(s): M25.552 - Pain in left hip Plan Most likely Sciatica vs arthritis vs strain vs bursitis Plan - Administered Toradol 60 mg injection in the office for immediate pain relief. - Consideration for a steroid burst and muscle relaxer to manage inflammation and muscle tension. - Naproxen BID as needed for pain - Heat or ice to the area - Activities as tolerated - PT on if she can tolerate it - follow up with PCP Orders: Orders AMB Ketorolac Injection Today M53.3 - Sacrococcygeal disorders, not elsewhere classified Medications: New prednisone 50 mg PO QAM 5 tabs 0RF 5 days naproxen 500 mg PO Q12H PRN 20 tabs 0RF pain 7 days cyclobenzaprine 5 mg PO Q8H PRN 21 tabs 0RF Muscle Spasm 7 days Coding Level of Care Code Est Pt Level 4 (61624) Diagnoses Pain of left hip M25.552 Laterality: left
== END 2025-04-26 08:11 | disposition home or self-care (01) ==
PROVIDERS: PCP Internal Medicine; Visit Provider Physician Assistant Medical
DX: M53.3 Sacrococcygeal disorders, not elsewhere classified (principal); M25.552 Pain in left hip

== ENCOUNTER 2025-05-02 13:29 | Outpatient (REF) | payer BC, SELFPAY ==
--- OUTSIDE RECORDS SUMMARY | 2025-04-07 06:30 | XMS_ITS ---
Author Organization [facility] Address [address] [place] [address] Care Team Providers Care Automatic Teller Machine Servicer Name Role Phone Calvin Bennett Primary Care Provider Deanna Wynn [phone] REASON FOR VISIT r/s for sooner apt Encounters Encounter Location Date Provider Diagnosis [facility] [address] [place] [address] 04/07/2025 Deanna Rivera Plan Of Treatment No Information Progress Notes * Maris HOFFMANQuitaDOB:10/1964 (59 yo F)Acc No.[id number]:04/07/2025 Progress Notes Patient: Rosanna MONROY Provider: Black Rivera DPM :1965 A ge:59 Y S ex:Female Date:04/07/2025 Address:[facility] [address] [id number] Pcp:Calvin Bennett Subjective: * Chief Complaints: * [...] 04/07/2025 Generated for Kuldeep seay/Devan/Mia on: 0 05/02/2025 02:09 PM EDT
--- NOTE | ~2025-05-02 | MM_ITS ---
EXAMINATION: MM DIAGNOSTIC DIGITAL BREAST TOMOSYNTHESIS, RIGHT CLINICAL INFORMATION: Callback from screening for right breast asymmetry in the lateral middle to posterior depth on the CC view COMPARISON: Comparison made to multiple prior, most recent April 01, 2024, and most remote June 29, 2018. TECHNIQUE: Digital breast tomosynthesis is performed in craniocaudal view along with computer-aided detection (CAD). Synthesized 2D images are generated from the tomosynthesis. Spot compression tomosynthesis images also obtained. FINDINGS: BREAST COMPOSITION: There are scattered areas of fibroglandular density (ACR BI-RADS breast composition Category b). RIGHT BREAST: Previously suggested asymmetry in the lateral breast middle/posterior depth is pliable with spot compression. Local parenchyma is similar to multiple prior studies as far back as 2017, therefore, likely represented superimposed fibroglandular breast tissue. MM/MM tomosynthesis added views R IMPRESSION: RIGHT BREAST: Negative, no mammographic evidence of malignancy. Normal interval follow-up is recommended in 12 months. ASSESSMENT: BI-RADS 1 - Negative RECOMMENDATION: 1 year F/U Results were provided to the patient at time of visit by the technologist. This patient's information was entered into a reminder system with a target due date for their next mammogram. Electronically signed by: Lynne Mckeon MD 05/02/2025 01:56 PM EDT
--- OUTSIDE RECORDS SUMMARY | 2025-05-02 14:09 | XMS_ITS | Clinical Summary ---
Author Organization [facility] Address [address] [place] [address] Care Team Providers Care Prover Name Role Phone Unknown Primary Care Provider [...] patient's age to complete this topic Insurance [facility] PPO Care Teams Prover Relationship Specialty Start Date End Date Unknown Unknow Provider Address PCP - General 11/27/21
== END 2025-05-02 13:30 | disposition home or self-care (01) ==
LOC: HO.MAMMO 13:29
PROVIDERS: PCP Internal Medicine; Visit Provider Internal Medicine
DX: N64.89 Other specified disorders of breast (principal)
CPT/HCPCS: 77061; 77065

== ENCOUNTER → 2025-05-02 13:30 | Outpatient (BNV) | payer BC, SELFPAY | PROVIDERS: PCP Internal Medicine; Visit Provider Radiology Body Imaging | DX: R92.8 Other abnormal and inconclusive findings on diagnostic imaging of breast (principal) | CPT/HCPCS: 77061; 77065 ==

== ENCOUNTER 2025-05-11 07:05 | Outpatient (AMB) | payer BC, SELFPAY ==
--- NOTE | 2025-05-11 07:11 | AM.OFFWIN_ITS ---
Intake Vital Signs 05/11/25 07:13 Height 5 ft 5.5 in Weight 129 lb 8 oz BMI 21.2 BP 138/62 Blood Pressure Location Lt brachial Position Sitting Pulse 106 H Pulse Source Pulse Oximeter Temp 98.2 F Temp Source Oral Pulse Oximetry (%) 97 Oxygen Delivery Method Room Air Intake Visit Reasons: EP-vomiting Patient Tobacco Use Status: Never used Tobacco Environmental Educator Required: No Is last menstrual period known: No Post menopausal: Yes Patient : No Allergies No Known Allergies (No Known Allergies*) Allergy (Verified 05/11/25 07:16) Do you need a note to return to daycare/school/sports/work: No HPI HPI Comments History of Present Illness Details History - The patient is a 59-year-old female wi th a past med hx HLD presenting with nausea, vomiting, and dehydration. - Constipation: Experienced after muscle relaxants and prednisone, resolved with MiraLax and Dulcolax. - Dehydration: Resulted from vomiting po st-Gatorade and bread intake, causing tachycardia. - Sacroiliitis: History of SI joint swel ling, treated with muscle relaxants and prednisone. Physical Exam General: Cooperative, healthy appearing, comfortable, no acute distress and well developed Orientation: Patient oriented x3 Limitations: No limitations Head: Normal to inspection Ears: Hearing grossly normal bilaterally Nose: Normal External nose present Face and sinus: Normal facial exam Mouth: normal, moist oral mucosa Eyes: Appearance normal, both eyes and all related structures Neck: Normal visual inspection and Yes full ROM Respiratory: Normal respiratory effort and able to speak in complete sentences. GI: normoactive bs, soft, no ttp throughout, negative murphys, negative mcburney's, no guarding Skin: no rashes or lesions noted Neuro: Patient oriented x3 Extremities: moving all extremities normally [facility] Medical History Basal cell carcinoma (BCC) Mild heartburn Arthritis Candidiasis of mouth Family history of polyps in the colon Hypercholesterolemia Psoriasis Surgical History H/O colonoscopy History of surgery Family History Father Diabetes Hypertension CVD (cardiovascular disease) Mother CVD (cardiovascular disease) Hypertension Sister Melanoma Paternal Aunt Breast cancer Maternal Grandfather Bone cancer Paternal Uncle Melanoma Colon cancer Paternal Grandmother No problems noted. Paternal Grandfather CVD (cardiovascular disease) Social History Housing: House Alcohol intake: never Patient Tobacco Use Status: Never used Tobacco e-Cigarette/Vaping Use: Never Used Second Hand Smoke Exposure: No Patient : No service: No Current occupational status: employed Current occupation: Occupational Therapy Cognitive needs: No Hearing needs: No Vision needs: No Review of Systems Const All systems reviewed & are unremarkable except as noted in HPI and below Physical Exam Vital Signs: Last Vital Signs Temp 98.2 F 05/11/25 07:13 Pulse 106 H 05/11/25 07:13 BP 138/62 05/11/25 07:13 Pulse Ox 97 05/11/25 07:13 Oxygen Delivery Method Room Air 05/11/25 07:13 BMI result Body Mass Index 21.2 Assessment & Plan Assessment & Plan (1) Dehydration, mild: Code(s): E86.0 - Dehydration Plan: Plan Patient was informed and verbally consented to the use of an ambient scribe for clinic note documentation during this visit - Encourage oral hydration, monitor heart rate. - Consider ER for IV fluids if needed and unable to tolerate PO intake. - Prescribe Zofran for nausea management. - Called [facility] with expect for IV fluids and labs. Spoke with nurse at 7:40AM (2) Nausea and vomiting: Code(s): R11.2 - Nausea with vomiting, unspecified Qualifiers: Vomiting type: unspecified Qualified Code(s): R11.2 - Nausea with vomiting, unspecified Plan: as above Medications: New ondansetron 4 mg PO Q8H PRN 10 tabs 0RF nausea and vomiting Coding Level of Care Code Est Pt Level 5 (08784) Diagnoses Dehydration, mild E86.0 Nausea and vomiting, unspecified vomiting type R11.2 Vomiting type: unspecified
[2025-05-11 07:13] VITALS: BP 138/62; PULSE 106; TEMP 36.8; O2SAT 97; BMI 21.2
== END 2025-05-11 08:28 | disposition home or self-care (01) ==
PROVIDERS: PCP Internal Medicine; Visit Provider Physician Assistant
DX: E86.0 Dehydration (principal); R11.2 Nausea with vomiting, unspecified

== ENCOUNTER 2025-05-11 07:50 | Emergency (ER) | payer BC, SELFPAY ==
--- OUTSIDE RECORDS SUMMARY | 2025-04-07 06:30 | XMS_ITS ---
Author Organization [facility] Address [address] [place] [address] Care Team Providers Care Meter Record Clerk Name Role Phone Calvin Bennett Primary Care Provider Deanna Wynn [phone] REASON FOR VISIT r/s for sooner apt Encounters Encounter Location Date Provider Diagnosis [facility] [address] [place] [address] 04/07/2025 Deanna Rivera Plan Of Treatment No Information Progress Notes * Maris HOFFMANQuitaDOB:10/1964 (59 yo F)Acc No.[id number]:04/07/2025 Progress Notes Patient: Rosanna MONROY Provider: Black Rivera DPM :1965 A ge:59 Y S ex:Female Date:04/07/2025 Address:[facility] [address] [id number] Pcp:Calvin Bennett Subjective: * Chief Complaints: * [...] Rivera DPM Date: 04/07/2025 Generated for Kuldeep seay/Devan/Jorge Lsmitting on: 0 05/11/2025 10:34 AM EDT
[2025-05-11 08:02] VITALS: BP 158/81; PULSE 107; RESP 18; TEMP 36.6; O2SAT 98; BMI 20.8
[2025-05-11 08:38] LABS: MANUAL DIFF FLAG NO
[2025-05-11 08:48] LABS: Hematocrit 36.7 % (37.0-47.0); Hemoglobin 13.0 g/dl (12.0-16.0); Imm Gran Abs Auto 0.04 X10*3/uL (0.00-0.03); Imm Gran Pct Auto 0.4 % (0.0-0.4); Lymphocytes Absolute Auto 1.7 X10*3/uL (1.2-4.9); Mean Corpuscular HGB Conc 35.4 g/dl (31.0-35.0); Mean Corpuscular Hemoglobin 29.8 pg (27.0-33.0); Mean Corpuscular Volume 84.2 fL (80.0-98.0); NRBC Abs Auto 0.000 X10*3/uL (0.0-0.012); NRBC Pct Auto 0.0 /100WBC (0.0-0.2); Platelet Count 233 X10*3/uL (160-400); Red Blood Count 4.36 X10*6/uL (4.20-5.50); White Blood Count 10.8 X10*3/uL (4.8-10.8)
[2025-05-11 08:58] LABS: Alanine Aminotransferase 7 U/L (0-31); Albumin Level 4.5 g/dL (3.5-5.0); Alkaline Phosphatase 91 U/L (39-117); Anion Gap 14 (12-20); Aspartate Amino Transferase 21 U/L (5-31); Blood Urea Nitrogen 8 mg/dL (9-16); Calcium 9.9 mg/dL (8.4-10.2); Carbon Dioxide 24 mmol/L (22-29); Chloride 103 mmol/L (96-108); Creatinine Clr Calc Pharmacy 92.1; Estimated Glomerular Filt Rate > 60; Lipase 14 U/L (8-78); Potassium 3.7 mmol/L (3.3-5.1); Sodium 137 mmol/L (135-145); Total Protein 7.7 g/dL (6.5-8.0)
--- NOTE | 2025-05-11 09:37 | ED.GENADULT ---
HPI - General Adult General Chief complaint: Nausea/Vomiting/Diarrhea Stated complaint: Dehydrated, Vomiting, med reaction, Sent via DR Time Seen by Provider: 05/11/25 09:37 History of Present Illness ED Provider: Karolina FREIRE narrative: The patient is a 59-year-old woman who says that a couple of weeks ago she was treated for a right-sided back pain syndrome with the prednisone and other medications. During that time she noticed that she seemed to go several days without a bowel movement. She contacted her doctor's office who recommended MiraLax. She took MiraLax for several days. This did not seem to produce any stool. Two days ago she also started taking Dulcolax by mouth. Yesterday she had multiple stools throughout the day. She felt like she had trouble taking oral intake yesterday however. Last night he she has a very large bowel movement and this morning she vomited what she describes as bile. She still felt somewhat unwell this morning and came to the emergency room because of the persistence of the symptoms and because she had vomited bile. She has not had any fever. Currently she has no abdominal pain. She also does not feel that she has any sense of hunger. Related Data Home Medications ?Medication ?Instructions ?Recorded ?Confirmed clobetasol 0.05 % topical ointment 1 appl topical BEDTIME 12/25/20 01/06/25 calcipotriene 0.005 % topical 1 appl topical BID 12/27/21 01/06/25 ointment risankizumab-rzaa 150 mg/mL mg subcut 12/31/22 01/06/25 subcutaneous pen injector (Segun) cholecalciferol (vitamin D3) 50 50 mcg PO DAILY 01/02/24 01/06/25 mcg (2,000 unit) capsule Previous Rx's ?Medication ?Instructions ?Recorded simvastatin 5 mg tablet 5 mg PO BEDTIME #90 tabs 01/06/25 ondansetron 4 mg disintegrating 4 mg PO Q8H PRN nausea and 05/11/25 tablet vomiting #10 tabs Allergies Allergy/AdvReac Type Severity Reaction Status Date / Time No Known Allergies (No Known Allergy Verified 05/11/25 08:03 Allergies*) Review of Systems Review of Systems: Yes all other systems are reviewed and are negative PMFSH Past Medical History Medical History Basal cell carcinoma (BCC) Mild heartburn Arthritis Candidiasis of mouth Family history of polyps in the colon Hypercholesterolemia Psoriasis Surgical History H/O colonoscopy History of surgery Family History Family History Father Diabetes Hypertension CVD (cardiovascular disease) Mother CVD (cardiovascular disease) Hypertension Sister Melanoma Paternal Aunt Breast cancer Maternal Grandfather Bone cancer Paternal Uncle Melanoma Colon cancer Paternal Grandmother No problems noted. Paternal Grandfather CVD (cardiovascular disease) Social History Social History Housing: House Alcohol intake: never Patient Tobacco Use Status: Never used Tobacco Smoked in Last 30 Days: No e-Cigarette/Vaping Use: Never Used Second Hand Smoke Exposure: No Use of substances other than those prescribed or required for medical reasons: No Advance Directives: No Advance Directives Information Provided: Yes Do you have a plan to hurt others: No Plan service: No Current occupational status: employed Current occupation: Occupational Therapy Cognitive needs: No Hearing needs: No Vision needs: No Physical Exam ED Vital Signs: Vital Signs - 24 hr 05/11/25 08:02 05/11/25 09:45 05/11/25 12:00 Temperature 98 F 98.1 F 98.2 F Pulse Rate 107 H 95 76 Respiratory Rate 18 16 18 Blood Pressure 158/81 H 120/65 131/69 Pulse Oximetry 98 97 99 Oxygen Delivery Method Room Air Room Air Room Air 05/11/25 12:29 Temperature 98.3 F Pulse Rate 72 Respiratory Rate 14 Blood Pressure 134/68 Pulse Oximetry 97 Oxygen Delivery Method Room Air BMI result Body Mass Index 20.8 Const Other: The patient is a slim 59-year-old woman who was awake and alert. She looks mildly unwell but not acutely ill. Orientation/consciousness: patient oriented x3 HENMT Other: The face is symmetrical. ?Mucous membranes moist. Eyes Other: Pupils are round equal, conjunctivae are clear, extraocular movements intact Neck Neck: Yes normal visual inspection, Yes full ROM, Yes no lymphadenopathy and Yes no JVD Resp Effort & Inspection: normal respiratory effort Auscultation: clear to auscultation bilaterally Cardio Rate: regular rate Rhythm: regular rhythm Heart sounds: S1 normal heart sound present and S2 normal heart sound present GI Other: The abdomen was flat and soft. I do not appreciate any tenderness or fullness. No masses. Skin General skin exam: no rashes or lesions noted Neuro General: patient oriented x3, gait normal, tone normal, moves all extremities, no focal motor deficits and CN's II-XI intact bilaterally Extrem Other: There is no calf swelling or tenderness. No asymmetry. No peripheral edema. Medications Administered Discontinued Medications Generic Name Dose Route Start Last Admin Trade Name Freq PRN Reason Stop Dose Admin Sodium Chloride 1,000 mls @ 999 mls/hr 05/11/25 10:00 05/11/25 12:03 Ns IV 05/11/25 11:00 Infused .Q1H1M KATIE Infusion Medical Decision Making Medical Decision Making [facility] Narrative: The patient is a 59-year-old woman who is generally in fairly good health. She describes having had a period of no stool output consistent with constipation. She took MiraLax and then oral Dulcolax an over the last 24 hours has passed a lot of stool. She vomited bilious material this morning and has had very little in the way of appetite but no real abdominal pain. Her abdomen seems extremely benign, soft, and without masses. She was given a L of IV fluids and seemed to feel better. She was then able to tolerate oral marcelo timi. I think she may be discharged to take clear fluids today and simple foods. I expect she should get better over time and can advance her diet as tolerated. Lab Data 05/11/25 08:34 05/11/25 08:34 Labs: Lab Results 05/11/25 Range/Units 08:34 WBC 10.8 (4.8-10.8) X10*3/uL RBC 4.36 (4.20-5.50) X10*6/uL Hgb 13.0 (12.0-16.0) g/dl Hct 36.7 L (37.0-47.0) % MCV 84.2 (80.0-98.0) fL MCH 29.8 (27.0-33.0) pg MCHC 35.4 H (31.0-35.0) g/dl RDW 11.9 (11.0-16.0) % Plt Count 233 (160-400) X10*3/uL MPV 9.5 (9.4-12.3) fL Immature Gran % (Auto) 0.4 (0.0-0.4) % Neut % (Auto) 78.1 H (45-73) % Lymph % (Auto) 15.7 L (20-40) % [place] % (Auto) 5.1 (2-11) % Eos % (Auto) 0.4 (0-4) % Baso % (Auto) 0.3 (0-2) % Lymph # (Auto) 1.7 (1.2-4.9) X10*3/uL [place] # (Auto) 0.6 (0.1-1.2) X10*3/uL Eos # (Auto) 0.0 (0.0-0.4) X10*3/uL Baso # (Auto) 0.0 (0.0-0.2) X10*3/uL Abs Immat Gran (auto) 0.04 H (0.00-0.03) X10*3/uL Absolute Neuts (auto) 8.5 H (2.0-8.3) x10*3/uL Absolute Nucleated RBC 0.000 (0.0-0.012) X10*3/uL Nucleated RBC % (auto) 0.0 (0.0-0.2) /100WBC Sodium 137 (135-145) mmol/L Potassium 3.7 (3.3-5.1) mmol/L Chloride 103 (96-108) mmol/L Carbon Dioxide 24 (22-29) mmol/L Anion Gap 14 (12-20) BUN 8 L (9-16) mg/dL Creatinine 0.60 (0.5-1.4) mg/dL Estim Creat Clear Calc 92.1 Estimated GFR > 60 Random Glucose 101 (60-115) mg/dL Calcium 9.9 (8.4-10.2) mg/dL Total Bilirubin 0.6 (0.0-1.0) mg/dL Direct Bilirubin 0.2 (0.0-0.5) mg/dL AST 21 (5-31) U/L ALT 7 (0-31) U/L Alkaline Phosphatase 91 (39-117) U/L C-Reactive Protein < 0.04 (< or = 0.50) mg/dL Total Protein 7.7 (6.5-8.0) g/dL Albumin 4.5 (3.5-5.0) g/dL Lipase 14 (8-78) U/L Discharge Plan Discharge Clinical Impression: Nausea, Vomiting Patient Disposition: Home, Self-Care Instructions: Constipation (ED) Additional Instructions: I think you have successfully treated your own constipation. I think your stomach and bowels are recovering from this episode. Take clear fluids today and simple foods like well cooked rice and toast. My expectation is that your symptoms should gradually resolve up with the next 24-48 hours. As you are feeling better you may eat more kinds of foods. Please stay in touch with your regular doctor for additional advice as needed. Return to the emergency room if significantly worse. Prescriptions: No Action clobetasol 0.05 % ointment 1 appl topical BEDTIME calcipotriene 0.005 % ointment 1 appl topical BID Rx Instructions: rub in gently and completely cholecalciferol (vitamin D3) 50 mcg (2,000 unit) capsule 50 mcg PO DAILY Skyrizi 150 mg/mL pen injector subcut ondansetron 4 mg tablet,disintegrating 4 mg PO Q8H PRN (Reason: nausea and vomiting) Qty: 10 0RF simvastatin 5 mg tablet 5 mg PO BEDTIME Qty: 90 1RF Referrals: Calvin Bennett MD [Primary Care Provider, Internal Medicine] Interventions: ED Discharge Assessment Last Done: 05/11/25 12:29 Discharge Date/Time: 05/11/25 12:30 Print Language: Puerto Rican
[2025-05-11 09:45] VITALS: BP 120/65; PULSE 95; RESP 16; TEMP 36.7; O2SAT 97
--- OUTSIDE RECORDS SUMMARY | 2025-05-11 10:34 | XMS_ITS | Clinical Summary ---
Author Organization [facility] Address [address] [place] [address] Care Team Providers Care Cooler Tender Name Role Phone Unknown Primary Care Provider [...] patient's age to complete this topic Insurance [facility] PPO Care Teams Cooler Tender Relationship Specialty Start Date End Date Unknown Unknow Provider Address PCP - General 11/27/21
[2025-05-11 12:00] VITALS: BP 131/69; PULSE 76; RESP 18; TEMP 36.8; O2SAT 99
[2025-05-11 12:29] VITALS: BP 134/68; PULSE 72; RESP 14; TEMP 36.8; O2SAT 97
== END 2025-05-11 12:30 | disposition home or self-care (01) ==
PROVIDERS: Emergency Provider Emergency Medicine; PCP Internal Medicine
DX: R11.2 Nausea with vomiting, unspecified (principal); E86.0 Dehydration; Z79.899 Other long term (current) drug therapy
CPT/HCPCS: 36415; 80048; 80076; 83690; 85025; 86140; 96360; 96361; 99284

== ENCOUNTER 2025-05-13 13:26 | Outpatient (REF) | payer BC, SELFPAY ==
--- NOTE | ~2025-05-13 | XR_ITS ---
EXAMINATION: Lumbar spine and right hip with pelvis. CLINICAL INDICATION: Low back pain in right hip pain. COMPARISON: Left hip and pelvis 04/06/2025 TECHNIQUE: AP pelvis and right hip 2 views. Lumbar spine 2-3 views. FINDINGS: AP pelvis: There is normal symmetry of bilateral hip joints and SI joints. No lytic or sclerotic process seen involving the pelvis. The soft tissues are normal. AP and frog-leg views right hip reveal maintained hip joint space. No bony erosive changes. No visible fracture or dislocation. The soft tissues are normal. Lumbar spine: There is maintained lumbar lordosis. The vertebral heights, alignment and disc heights are normal. No visible acute fracture, dislocation or subluxation seen. SI joints are symmetrical. The paravertebral soft tissues are normal. XR/XR hip RT w PEL1V IMPRESSION: Unremarkable AP pelvis and right hip. Unremarkable lumbar spine exam Electronically signed by: Jalen Bruno MD 05/13/2025 04:53 PM EDT
--- NOTE | ~2025-05-13 | XR_ITS ---
EXAMINATION: Lumbar spine and right hip with pelvis. CLINICAL INDICATION: Low back pain in right hip pain. COMPARISON: Left hip and pelvis 04/06/2025 TECHNIQUE: AP pelvis and right hip 2 views. Lumbar spine 2-3 views. FINDINGS: AP pelvis: There is normal symmetry of bilateral hip joints and SI joints. No lytic or sclerotic process seen involving the pelvis. The soft tissues are normal. AP and frog-leg views right hip reveal maintained hip joint space. No bony erosive changes. No visible fracture or dislocation. The soft tissues are normal. Lumbar spine: There is maintained lumbar lordosis. The vertebral heights, alignment and disc heights are normal. No visible acute fracture, dislocation or subluxation seen. SI joints are symmetrical. The paravertebral soft tissues are normal. XR/XR lumbar spine 2-3V IMPRESSION: Unremarkable AP pelvis and right hip. Unremarkable lumbar spine exam Electronically signed by: Jalen Bruno MD 05/13/2025 04:53 PM EDT
== END 2025-05-13 13:27 | disposition home or self-care (01) ==
LOC: HO.XRAY 13:26
PROVIDERS: PCP Internal Medicine; Visit Provider Nurse Practitioner Family
DX: M25.551 Pain in right hip (principal); M54.50 Low back pain, unspecified; R11.2 Nausea with vomiting, unspecified
CPT/HCPCS: 72100; 73502

== ENCOUNTER 2025-05-13 13:26 | Outpatient (AMB) | payer BC, SELFPAY ==
--- OUTSIDE RECORDS SUMMARY | 2025-04-07 06:30 | XMS_ITS ---
Author [facility] Address [address] [place] [address] Care Team Providers Care Reinsurance Accountant Name Role Phone Calvin Bennett Primary Care Provider Deanna Wynn [phone] REASON FOR VISIT r/s for sooner apt Encounters Encounter Location Date Provider Diagnosis [facility] [address] [place] [address] 04/07/2025 Deanna Rivera Plan Of Treatment No Information Progress Notes * Maris HOFFMANQuitaDOB:10/1964 (59 yo F)Acc No.[id number]:04/07/2025 Progress Notes Patient: Rosanna MONROY Provider: Black Rivera DPM :1965 A ge:59 Y S ex:Female Date:04/07/2025 Address:[facility] [address] [id number] Pcp:Calvin Bennett Subjective: * Chief Complaints: * [...] Rivera DPM Date: 04/07/2025 Generated for Kuldeep seay/Devan/Mia on: 0 05/13/2025 01:28 PM EDT
--- OUTSIDE RECORDS SUMMARY | 2025-05-13 13:28 | XMS_ITS | Clinical Summary ---
Author Organization [facility] Address [address] [place] [address] Care Team Providers Care Digital Marketing Consultant Name Role Phone Unknown Primary Care Provider [...] patient's age to complete this topic Insurance [facility] PPO Care Teams Digital Marketing Consultant Relationship Specialty Start Date End Date Unknown Unknow Provider Address PCP - General 11/27/21
[2025-05-13 13:51] VITALS: BP 132/72; PULSE 101; O2SAT 97; BMI 20.4
--- NOTE | 2025-05-13 13:51 | A.OFFPC_ITS ---
Vital Signs 05/13/25 13:51 Height 5 ft 6 in Weight 126 lb 6 oz BMI 20.4 BP 132/72 Pulse 101 H Pulse Oximetry (%) 97 Intake Visit Reasons: [facility] 04/26 hip pain Auto Accessories Installer Required: No Accompanied by: Self / Same As Patient Allergies No Known Allergies (No Known Allergies*) Allergy (Verified 05/13/25 13:52) Tobacco use date assessed: 05/13/25 Dental Screening Dental Screen Date: 05/13/25 Did you have a dental visit in the last 12 months?: No Did you have a dental problem in the last 6 months where you did not have access to dental care?: No Was dental information given to patient?: Patient declined HPI HPI Comments History of Present Illness Details 59 y/o female patient who presents to [facility] today with c/o Nausea and vomiting for ~ 3-4 days now. Reports unable to keep any fluids or solids down. She was recently evaluated at the [facility] and given IV fluids and Zofran. Reports some symptom relief on Zofran but continues to feel nauseous. Denies fevers, chills, abdominal pain, constipation or diarrhea. Though she did have constipation which she treated herself with OTC remedies. Reports Right Hip pain and Lower back pain. She was evaluated at our UC and treated with Prednisone, and NSAIDs with some relief. Denies any recent injury or trauma. She is currently receiving Physical therapy and sees Chiropractor. Pt asking for Imaging on right Hip and Back. [facility] Medical History (Updated 05/13/25 @ 14:13 by Mary Hsieh NP) Lumbar pain Right hip pain Basal cell carcinoma (BCC) Mild heartburn Arthritis Candidiasis of mouth Family history of polyps in the colon Hypercholesterolemia Psoriasis Surgical History H/O colonoscopy History of surgery Family History Father Diabetes Hypertension CVD (cardiovascular disease) Mother CVD (cardiovascular disease) Hypertension Sister Melanoma Paternal Aunt Breast cancer Maternal Grandfather Bone cancer Paternal Uncle Melanoma Colon cancer Paternal Grandmother No problems noted. Paternal Grandfather CVD (cardiovascular disease) Social History Housing: House Alcohol intake: never Patient Tobacco Use Status: Never used Tobacco e-Cigarette/Vaping Use: Never Used Second Hand Smoke Exposure: No service: No Current occupational status: employed Current occupation: Occupational Therapy Cognitive needs: No Hearing needs: No Vision needs: No Questionnaire Thrive Questionnaire Date Thrive assessed: 05/13/25 I am a: Patient What is your living situation today?: I have a steady place to live Within the past 12 months, did the food you bought not last and you didn't have the money to get more?: Never true Within the past 12 months, did you worry whether your food would run out before you got money to buy more?: Never true Do you have trouble paying for medicines?: No Do you have trouble getting transportation to medical appointments?: No Do you have trouble paying your heating and electricity bill?: No Do you have trouble taking care of your child, family member or friend?: No Do you have trouble with day-to-day activities such as bathing, preparing meals, shopping, managing finances, etc.?: No Are you currently unemployed and looking for a job?: No Are you interested in more education?: No Please select the resources that you would like help with: None Currently or been in a relationship where the following occur: No concerns reported THRIVE Score: 0 FLORINDA-7 AMB Questionnaire FLORINDA-7 Date FLORINDA - 7 assessed: 05/13/25 Source: Developed by Drs. Benigno See, Paige Prescott, Andrea Roa and colleagues, with an educational pavan from [email or web address]. Review of Systems Const All systems reviewed & are unremarkable except as noted in HPI and below Physical exam (Primary Care) Vital Signs: Last Vital Signs Pulse 101 H 05/13/25 13:51 BP 132/72 05/13/25 13:51 Pulse Ox 97 05/13/25 13:51 BMI result Body Mass Index 20.4 Tobacco/Smoking Status: Tobacco use Status Tobacco use date assessed 05/13/25 05/13/25 13:55 Patient Tobacco Use Status Never used Tobacco 05/13/25 13:51 e-Cigarette/Vaping Use Never Used 05/13/25 13:51 Thrive Assessment: Date of Thrive Assessment Date Thrive assessed 05/13/25 05/13/25 13:55 Currently or been in a relationship where the following occur: No concerns reported Const General: no acute distress Nutritional Appearance: thin Orientation/consciousness: patient oriented x3 Resp Effort & Inspection: normal respiratory effort Auscultation: clear to auscultation bilaterally Cardio Heart sounds: S1 normal heart sound present and S2 normal heart sound present GI Palpation (GI): Soft to palpation, not firm, Tenderness to palpation present (GI), no guarding and not rigid Auscultation: Hypoactive bowel sounds present Rectal Exam - Female: deferred Back/Spine/Pelvis Back: back tenderness Thoracic/Lumbar Spine: pain with thoraco-lumbar ROM, thoraco-lumbar spasm, thoracic spinal tenderness and lumbar spinal tenderness Neuro General: patient oriented x3 and moves all extremities Extrem Right lower extremity: hip/thigh Details: normal to inspection, tenderness Location: of the hip and normal ROM (Slightly limited due to pain); no swelling, no ecchymosis and no crepitus Psych Speech and movement: Normal speech and movement present Coding Level of Care Code Est Pt Level 4 (74833) Diagnoses Nausea and vomiting, unspecified vomiting type R11.2 Vomiting type: unspecified Right hip pain M25.551 Lumbar pain M54.50 Time Spent (min) 20 Assessment & Plan Assessment & Plan (1) Nausea and vomiting: Code(s): R11.2 - Nausea with vomiting, unspecified Category: Medical Qualifiers: Vomiting type: unspecified Qualified Code(s): R11.2 - Nausea with vomiting, unspecified Plan: Ordered Reglan Increased Zofran dosing to 8 mg Q8h Hydrate with Gatorade and Pedilyte Advance diet slowly Avoid Oily greasy foods. (2) Right hip pain: Code(s): M25.551 - Pain in right hip Category: Medical Plan: Ordered Xray Hip/Pelvis Continue with PT as scheduled. Ice/Hot Will defer MRI to PCP. (3) Lumbar pain: Code(s): M54.50 - Low back pain, unspecified Category: Medical Plan: Continue with PT as scheduled. Ice/Hot Will defer MRI to PCP. Orders: Orders XR hip RT w PEL1V Today M25.551 - Pain in right hip, M54.50 - Low back pain, unspecified XR lumbar spine 2-3V Today M25.551 - Pain in right hip, M54.50 - Low back pain, unspecified Medications: New ondansetron 8 mg PO Q8H 20 tabs 0RF R11.2 - Nausea with vomiting, unspecified metoclopramide HCl (Reglan) 10 mg PO Q6H PRN 30 tabs 0RF nausea and vomiting R11.2 - Nausea with vomiting, unspecified Discontinued ondansetron Discontinued Reason: Patient Completed Course 4 mg PO Q8H PRN 10 tabs 0RF nausea and vomiting
== END 2025-05-13 16:15 | disposition home or self-care (01) ==
LOC: HO.HMCH 13:27
PROVIDERS: PCP Internal Medicine; Visit Provider Nurse Practitioner Family
DX: R11.2 Nausea with vomiting, unspecified (principal); M25.551 Pain in right hip; M54.50 Low back pain, unspecified

== ENCOUNTER → 2025-05-13 16:09 | Outpatient (BNV) | payer BC, SELFPAY | PROVIDERS: PCP Internal Medicine; Visit Provider Radiology Diagnostic Radiology | DX: M54.50 Low back pain, unspecified (principal); M25.551 Pain in right hip | CPT/HCPCS: 72100; 73502 ==

== ENCOUNTER 2025-05-26 08:20 | Outpatient (REF) | payer BC, SELFPAY ==
--- OUTSIDE RECORDS SUMMARY | 2025-04-07 06:30 | XMS_ITS ---
Author Organization [facility] Address [address] [place] [address] Care Team Providers Care Research Animal Attendant Name Role Phone Calvin Bennett Primary Care Provider Deanna Wynn [phone] REASON FOR VISIT r/s for sooner apt Encounters Encounter Location Date Provider Diagnosis [facility] [address] [place] [address] 04/07/2025 Deanna Rivera Plan Of Treatment No Information Progress Notes * Maris HOFFMANQuitaDOB:10/1964 (59 yo F)Acc No.[id number]:04/07/2025 Progress Notes Patient: Rosanna MONROY Provider: Black Rivera DPM :1965 A ge:59 Y S ex:Female Date:04/07/2025 Address:[facility] [address] [id number] Pcp:Calvin Bennett Subjective: * Chief Complaints: * 1 . R/s for sooner apt. * Medical History: Objective: * Vitals: Assessment: Plan: * Treatment: * Images: * The named appointment provid er may or may not be the originator of this progress note, and it is not deemed complete until electronically signed by the appointment provider. Sign off status: Pending * Provider: Black Rivera DPM Date: 04/07/2025 Generated for Kuldeep seay/Devan/Williitting on: 0 05/26/2025 09:06 AM EDT
[2025-05-26 08:36] LABS: MANUAL DIFF FLAG NO
[2025-05-26 08:45] LABS: Hematocrit 38.6 % (37.0-47.0); Hemoglobin 12.7 g/dl (12.0-16.0); Imm Gran Abs Auto 0.01 X10*3/uL (0.00-0.03); Imm Gran Pct Auto 0.2 % (0.0-0.4); Lymphocytes Absolute Auto 1.9 X10*3/uL (1.2-4.9); Mean Corpuscular HGB Conc 32.9 g/dl (31.0-35.0); Mean Corpuscular Hemoglobin 29.0 pg (27.0-33.0); Mean Corpuscular Volume 88.1 fL (80.0-98.0); NRBC Abs Auto 0.000 X10*3/uL (0.0-0.012); NRBC Pct Auto 0.0 /100WBC (0.0-0.2); Platelet Count 239 X10*3/uL (160-400); Red Blood Count 4.38 X10*6/uL (4.20-5.50); White Blood Count 5.1 X10*3/uL (4.8-10.8)
--- OUTSIDE RECORDS SUMMARY | 2025-05-26 09:06 | XMS_ITS | Clinical Summary ---
Author Organization [facility] Address [address] [place] [id number] Care Team Providers Care Washcoat Wiper Name Role Phone Unknown Primary Care Provider [...] patient's age to complete this topic Insurance [facility] PPO Care Teams Washcoat Wiper Relationship Specialty Start Date End Date Unknown Unknow Provider Address PCP - General 11/27/21
[2025-05-26 09:15] LABS: Alanine Aminotransferase 12 U/L (0-31); Albumin Level 4.4 g/dL (3.5-5.0); Alkaline Phosphatase 68 U/L (39-117); Anion Gap 11 (12-20); Aspartate Amino Transferase 20 U/L (5-31); Blood Urea Nitrogen 9 mg/dL (9-16); Calcium 9.4 mg/dL (8.4-10.2); Carbon Dioxide 28 mmol/L (22-29); Chloride 106 mmol/L (96-108); Cholesterol 190 mg/dL (<200); Estimated Glomerular Filt Rate > 60; HDL Cholesterol 51 mg/dL (>40); Potassium 4.1 mmol/L (3.3-5.1); Sodium 141 mmol/L (135-145); Total Protein 7.1 g/dL (6.5-8.0); Triglycerides 73 mg/dL (<150)
[2025-05-26 09:31] LABS: Free T4 (Free Thyroxine) 1.04 ng/dL (0.71-1.85); Thyroid Stimulating Hormone 2.19 uIU/mL (0.32-4.0)
[2025-05-26 09:41] LABS: Folate 10.9 ng/mL (> or = 4.0); Vitamin B12 399 pg/mL (200-900)
== END 2025-05-26 08:21 | disposition home or self-care (01) ==
LOC: HO.LAB 08:20
PROVIDERS: PCP Internal Medicine; Visit Provider Internal Medicine
DX: E78.00 Pure hypercholesterolemia, unspecified (principal)
CPT/HCPCS: 36415; 80053; 80061; 82306; 82607; 82746; 84439; 84443; 85025

== ENCOUNTER 2025-05-27 16:45 | Outpatient (AMB) | payer BC, SELFPAY ==
--- OUTSIDE RECORDS SUMMARY | 2025-04-07 06:30 | XMS_ITS ---
[facility] Address [address] [place] [address] Care Team Providers Care Operations And Maintenance Specialist Name Role Phone Calvin Bennett Primary Care Provider Deanna Wynn [phone] REASON FOR VISIT r/s for sooner apt Encounters Encounter Location Date Provider Diagnosis [facility] [address] [place] [address] 04/07/2025 Deanna Rivera Plan Of Treatment No Information Progress Notes * Maris HOFFMANQuitaDOB:10/1964 (59 yo F)Acc No.[id number]:04/07/2025 Progress Notes Patient: Rosanna MONROY Provider: Black Rivera DPM :1965 A ge:59 Y S ex:Female Date:04/07/2025 Address:[facility] [address] [id number] Pcp:Calvin Bennett Subjective: * Chief Complaints: * [...] 04/07/2025 Generated for Kuldeep seay/Devan/Williitting on: 0 05/27/2025 04:47 PM EDT
--- NOTE | 2025-05-27 16:55 | MHC.PC.OV ---
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 Accompanied by: Self / Same As Patient Allergies No Known Allergies (No Known Allergies*) Allergy (Verified 05/27/25 16:58) Medication List - Last Reconciled 05/27/25 by Calvin Bennett MD calcipotriene 0.005% 1 appl topical BID cholecalciferol (vitamin D3) 50 mcg PO DAILY clobetasol 0.05% 1 appl topical BEDTIME metoclopramide HCl (Reglan) 10 mg PO Q6H PRN ondansetron 8 mg PO Q8H risankizumab-rzaa (Skyrizi) mg subcut simvastatin 5 mg PO BEDTIME Tobacco use date assessed: 05/27/25 Dental Screening Dental Screen Date: 05/27/25 Did you have a dental visit in the last 12 months?: No Did you have a dental problem in the last 6 months where you did not have access to dental care?: No Was dental information given to patient?: No HPI Joint pain HPI Details R lower back pain radiating to the R hip AREA to the R groin 5 weeks already, no dysuria, no fevers, bowels are better. xray is normal lumbar and hip PFSH Medical History Lumbar pain Right hip pain Basal cell carcinoma (BCC) Mild heartburn Arthritis Candidiasis of mouth Family history of polyps in the colon Hypercholesterolemia Psoriasis Surgical History H/O colonoscopy History of surgery Family History Father Diabetes Hypertension CVD (cardiovascular disease) Mother CVD (cardiovascular disease) Hypertension Sister Melanoma Paternal Aunt Breast cancer Maternal Grandfather Bone cancer Paternal Uncle Melanoma Colon cancer Paternal Grandmother No problems noted. Paternal Grandfather CVD (cardiovascular disease) Social History Housing: House Alcohol intake: never Patient Tobacco Use Status: Never used Tobacco e-Cigarette/Vaping Use: Never Used Second Hand Smoke Exposure: No service: No Current occupational status: employed Current occupation: Occupational Therapy Cognitive needs: No Hearing needs: No Vision needs: No Questionnaire PHQ-9 Over the last 2 weeks, how often have you been bothered by any of the following problems? 1. Little interest or pleasure in doing things: not at all 2. Feeling down, depressed, or hopeless: several days 3. Trouble falling or staying asleep, or sleeping too much: several days 4. Feeling tired or having little energy: several days 5. Poor appetite or overeating: not at all 6. Feeling bad about yourself - or that you are a failure or have let yourself or your family down: not at all 7. Trouble concentrating on things, such as reading the newspaper or watching television: not at all 8. Moving or speaking so slowly that other people could have noticed. Or the opposite - being so fidgety or restless that you have been moving around a lot more than usual: not at all 9. Thoughts that you would be better off or of hurting yourself in some way: not at all Total score: 3 Source: Developed by Drs. Benigno See, Paige Prescott, Andrea Roa and colleagues, with an educational pavan from [employer]. Thrive Questionnaire Date Thrive assessed: 05/13/25 I am a: Patient What is your living situation today?: I have a steady place to live Within the past 12 months, did the food you bought not last and you didn't have the money to get more?: Never true Within the past 12 months, did you worry whether your food would run out before you got money to buy more?: Never true Do you have trouble paying for medicines?: No Do you have trouble getting transportation to medical appointments?: No Do you have trouble paying your heating and electricity bill?: No Do you have trouble taking care of your child, family member or friend?: No Do you have trouble with day-to-day activities such as bathing, preparing meals, shopping, managing finances, etc.?: No Are you currently unemployed and looking for a job?: No Are you interested in more education?: No Please select the resources that you would like help with: None Currently or been in a relationship where the following occur: No concerns reported THRIVE Score: 0 AUDIT C Alcohol Use Questionnaire (AUDIT-C) 3. How often do you have six or more drinks on one occasion?: Never Total Score: 0 FLORINDA-7 AMB Questionnaire FLORINDA-7 Date FLORINDA - 7 assessed: 05/13/25 Source: Developed by Drs. Benigno See, Paige Prescott, Andrea Roa and colleagues, with an educational pavan from [employer]. Physical exam (Primary Care) Vital Signs: Last Vital Signs Pulse 77 05/27/25 16:56 BP 128/62 05/27/25 16:56 Pulse Ox 99 05/27/25 16:56 BMI result Body Mass Index 20.5 Tobacco/Smoking Status: Tobacco use Status Tobacco use date assessed 05/27/25 05/27/25 17:00 Patient Tobacco Use Status Never used Tobacco 05/27/25 17:00 e-Cigarette/Vaping Use Never Used 05/27/25 17:00 PHQ-9: PHQ-9 Score PHQ-9: Total score 3 05/27/25 17:30 Thrive Assessment: Date of Thrive Assessment Date Thrive assessed 05/13/25 05/27/25 17:00 Currently or been in a relationship where the following occur: No concerns reported Const General: alert; No acute distress Eyes Conjunctivae: conjunctivae normal Resp Auscultation: clear to auscultation bilaterally Cardio Rate: regular rate Rhythm: regular rhythm GI Inspection: Yes normal to inspection Extrem General: Yes normal to inspection and No edema Results AMB Urinalysis, Automated UA Leukoctes 0 Denys/uL Last Edit by Julieth Escoto [place] on 05/27/25 17:38 UA Nitrite Negative Last Edit by Julieth Escoto [facility] on 05/27/25 17:38 UA Urobilinogen 0 mg/dL Last Edit by Julieth Escoto [facility] on 05/27/25 17:38 UA Protein 0 mg/dL Last Edit by Julieth Escoto [facility] on 05/27/25 17:38 UA pH 6.0 Last Edit by Julieth Escoto [facility] on 05/27/25 17:38 UA Blood 0 Nelson/uL Last Edit by Julieth Escoto [facility] on 05/27/25 17:38 UA Specific [place] 1.010 Last Edit by NATALIE Schwartz on 05/27/25 17:38 UA Ketone Negative Last Edit by NATALIE Schwartz on 05/27/25 17:38 UA Bilirubin 0 mg/dL Last Edit by NATALIE Schwartz on 05/27/25 17:38 UA Glucose 0 mg/dL Last Edit by NATALIE Schwartz on 05/27/25 17:38 Coding Level of Care Code Est Pt Level 3 (71362) Diagnoses Lumbar pain M54.50 Low back pain radiating to right lower extremity M54.50; M79.604 Assessment & Plan Assessment & Plan (1) Lumbar pain: Code(s): M54.50 - Low back pain, unspecified Category: Medical (2) Low back pain radiating to right lower extremity: Code(s): M54.50 - Low back pain, unspecified; M79.604 - Pain in right leg Category: Medical Plan: PAtient has gone for Physical therapy with no relief and pain persist lumbar area Plan History of Present Illness The patient is a 59-year-old female presenting for follow-up on multiple conditions including hypercholesterolemia, psoriasis, and tubular adenoma, as well as management of musculoskeletal pain. The patient has a history of hypercholesterolemia and psoriasis, with a tubular adenoma identified during her last colonoscopy in 2020. She was last seen in January for a physical exam and has been experiencing left hip pain, for which she was referred to physical therapy. In May, the patient reported low back pain, prompting an X-ray request which returned normal results. Her blood work from May showed normal blood count, electrolytes, renal function, blood sugar, liver function, cholesterol, B12, vitamin D, folic acid, and thyroid levels. The patient describes the pain as constant and sometimes stabbing, with altered sensation wrapping around her body. She reports waking up at night due to pain, although her bowel movements have improved. Physical therapy and acupuncture have been part of her management, with some improvement noted in pain levels. The patient has also been using ice for pain relief, which provides temporary comfort. Health Maintenance - Colonoscopy last performed in 2020, revealing a tubular adenoma. Social History - Employment: Works in a school. Review of Systems - Musculoskeletal: Reports constant, sometimes stabbing pain in the hip and back, with altered sensation. - Genitourinary: Denies problems with urination, but reports waking up at night due to pain. - Gastrointestinal: Reports improvement in bowel movements. Physical Exam - Musculoskeletal: Examination of the hip and lumbar region, noting tightness and pain upon certain movements. - Neurological: Sensation and muscle strength assessed, with no significant abnormalities noted. Results - Labs: Normal blood count, electrolytes, renal function, blood sugar, liver function, cholesterol, B12, vitamin D, folic acid, and thyroid levels as of May. - Imaging: X-ray of the lumbar region showed normal results. Plan The patient will continue with physical therapy and acupuncture to manage her musculoskeletal pain, which has shown some improvement. An MRI of the lumbar region has been ordered to further investigate the cause of her pain, particularly to assess the lumbosacral area. The patient is advised to continue using ice for temporary pain relief and to follow up with her healthcare provider once the MRI results are available. Patient was informed and verbally consented to the use of an ambient scribe for clinic note documentation during this visit. Discussion Notes I discussed with the patient the plan to continue physical therapy and acupuncture, which have been beneficial in managing her pain. We also talked about the need for an MRI to further evaluate her lumbar region, and I explained that this would help us understand the underlying cause of her symptoms. The patient was informed about the importance of using ice for temporary relief and the need to follow up after the MRI results are available. Patient Instructions - Continue with physical therapy and acupuncture as advised. - Use ice for temporary pain relief as needed. - Follow up with your healthcare provider after the MRI results are available. Orders: Orders AMB Urinalysis Automated Today Z13.9 - Encounter for screening, unspecified MR lumbar spine wo con Today M54.50 - Low back pain, unspecified, M79.604 - Pain in right leg
[2025-05-27 16:56] VITALS: BP 128/62; PULSE 77; O2SAT 99; BMI 20.5
== END 2025-05-27 17:43 | disposition home or self-care (01) ==
LOC: HO.HMCH 16:45
PROVIDERS: PCP Internal Medicine; Visit Provider Internal Medicine
DX: M54.50 Low back pain, unspecified (principal); M79.604 Pain in right leg; Z13.9 Encounter for screening, unspecified

== ENCOUNTER → 2025-05-27 16:45 | Outpatient (BNVA) | payer BC, SELFPAY | PROVIDERS: PCP Internal Medicine; Visit Provider Internal Medicine | DX: M79.604 Pain in right leg (principal); M54.50 Low back pain, unspecified; E78.00 Pure hypercholesterolemia, unspecified; L40.9 Psoriasis, unspecified | CPT/HCPCS: 81003; 96127 ==

== ENCOUNTER 2025-06-21 16:00 | Outpatient (RCR) | payer BC, SELFPAY | END 2025-07-11 13:44 | disposition home or self-care (01) | LOC: HO.PTCHIC 16:00 | PROVIDERS: PCP Internal Medicine; Visit Provider Physician Assistant Medical | DX: M25.552 Pain in left hip (principal) | CPT/HCPCS: 97110; 97140; 97161; 97162 ==